=== PATIENT | female | born 1945 | race African-American/Black ===

== ENCOUNTER 2019-06-23 20:41 | Inpatient (IN) | payer MEDICARE, MEDICAID ==
[~2019-06-23] VITALS: Ht 149.9 cm; Wt 88.2 kg
--- NOTE | 2019-06-23 20:47 | NUR ---
"BIBPA FROM [facility] FOR G TUBE LEAK AND ABNORMAL LABS NA 128, K 5.4" PT VENT TRACHE DEPENDENT, AAOX0, OBTUNDED, -SOB, NAD NOTED, PT ON MONITOR, VSS.
[2019-06-23] MEDS ORDERED: ALBUTEROL FS 2.5 MG/3 ML VIAL.NEB ONE (21:07)
[2019-06-23] MEDS ORDERED: IPRATROPIUM NEB FS 0.5 MG/2.5 ML AMPUL.NEB ONE (21:07)
[2019-06-23] MEDS ORDERED: ALBUTEROL FS 2.5 MG/3 ML VIAL.NEB NEB ONE (21:30)
[2019-06-23] MEDS ORDERED: IPRATROPIUM NEB FS 0.5 MG/2.5 ML AMPUL.NEB NEB ONE (21:30)
[2019-06-23 21:56] LABS: BASOPHILS # (AUTO) 0.1 /CMM (0.0-0.2); BASOPHILS % (AUTO) 0.3 % (0.0-2.0); HEMATOCRIT 26 % (33-45); HEMOGLOBIN 8.2 g/dL (11.5-14.8); LYMPHOCYTES # (AUTO) 0.6 /CMM (0.8-4.8); MEAN CORPUSCULAR HGB CONC 32 g/dl (31.0-36.0); MEAN CORPUSCULAR VOLUME 88 fL (82-100); MONOCYTES # (AUTO) 1.1 /CMM (0.1-1.30); MONOCYTES % (AUTO) 5.7 % (2.0-12.0); NEUTROPHILS # (AUTO) 16.8 /CMM (1.8-8.9); PLATELET COUNT (AUTO) 171 /CMM (150-450); RED BLOOD CELL COUNT(AUTO) 2.93 MIL/uL (4.0-5.2); WHITE BLOOD COUNT (AUTO) 18.5 K/uL (4.3-11.0)
[2019-06-23 22:08] LABS: CALCIUM, SERUM 9.1 mg/dL (8.5-10.1); CARBON DIOXIDE 32 mmol/L (21-32); CHLORIDE 95 mmol/L (98-107); CREATININE 1.4 mg/dL (0.6-1.3); GLUCOSE 129 mg/dL (74-106); SODIUM SERUM 128 mmol/L (136-145); UREA NITROGEN, BLOOD 54 mg/dL (7-18)
[2019-06-23 22:14] LABS: ALANINE AMINOTRANSFERASE 31 U/L (12-78); ALBUMIN 2.1 g/dL (3.4-5.0); ALKALINE PHOSPHATASE 86 U/L (46-116); ASPARTATE AMINOTRANSFERASE 25 U/L (15-37); BILIRUBIN,DIRECT 0.2 mg/dL (0.0-0.2); BILIRUBIN,TOTAL 0.5 mg/dL (0.2-1.0); TOTAL PROTEIN, SERUM 6.5 g/dL (6.4-8.2)
--- NOTE | 2019-06-23 22:24 | NUR ---
urine collected and sent to lab
[2019-06-23 22:39] LABS: APPEARANCE,URINE Clear (CLEAR); BILIRUBIN,URINE Negative (NEGATIVE); BLOOD, URINE Negative Ery/uL (NEGATIVE); COLOR,URINE Yellow (YELLOW); KETONES,URINE Negative (NEGATIVE); LEUKOCYTE ESTERASE ,URINE Negative (NEGATIVE); NITRITE, URINE Negative (NEGATIVE); PH,URINE 5.5 (5.0-8.0); PROTEIN,URINE Trace mg/dl (NEGATIVE); UGLUCOSE Negative (NEGATIVE); UROBILINOGEN,URINE 0.2 EU/dL (0.2)
[2019-06-23] MEDS ORDERED: ASPIRIN 300 MG/SUPP.RECT RC ONE (23:00)
[2019-06-23 23:15] LABS: BACTERIA,URINE Rare /HPF (None Seen); RBC,URINE NONE SEEN /HPF (0-2); SQUAMOUS EPITHELIAL CELL,UR Few /HPF (None Seen); WBC,URINE NONE SEEN /HPF (0-3)
--- NOTE | 2019-06-23 23:22 | NUR ---
RECIEVED BED 308-2
[2019-06-23] MEDS ORDERED: IV D5/0.45 NACL 1,000 ML IV PRN (23:25)
[2019-06-23] MEDS ORDERED: Z GUARD REMEDY 2 OZ OINT TP PRN (23:30)
[2019-06-23] MEDS ORDERED: HYDROCODONE/APAP 5/325MG 1 EACH TABLET PO PRN (23:30)
[2019-06-23] MEDS ORDERED: ZOLPIDEM TARTRATE 5 MG TABLET PO PRN (23:30)
[2019-06-23] MEDS ORDERED: ONDANSETRON HCL/PF 4 MG/2 ML VIAL IVP PRN (23:30)
[2019-06-23] MEDS ORDERED: MAGNESIUM HYDROXIDE 30 ML UDC PO PRN (23:30)
[2019-06-23] MEDS ORDERED: MAG HYDROX/AL HYDROX/SIMETH 30 ML UDC PO PRN (23:30)
[2019-06-23] MEDS ORDERED: ENOX40DI SQ (23:44)
[2019-06-23] MEDS ORDERED: NAPH1POW3 GT (23:44)
[2019-06-23] MEDS ORDERED: DIGO125T GT (23:44)
[2019-06-23] MEDS ORDERED: FURO-144 GT (23:44)
[2019-06-23] MEDS ORDERED: LACT-209 GT (23:44)
[2019-06-23] MEDS ORDERED: ATOR20TA GT (23:44)
[2019-06-23] MEDS ORDERED: FAMO-131 GT (23:44)
[2019-06-23] MEDS ORDERED: ASPI-1169 GT (23:44)
[2019-06-23] MEDS ORDERED: DOCU100C36 GT (23:44)
[2019-06-23] MEDS ORDERED: CARV3.122 GT (23:44)
[2019-06-23] MEDS ORDERED: FERR300L GT (23:44)
[2019-06-23] MEDS ORDERED: CRAN3875 GT (23:44)
--- NOTE | 2019-06-23 23:52 | NUR ---
REPORT GIVEN TO VANIA GIORDANO FOR CODY; PT WILL BE TRANSPORTD TO 3RD FLOOR VIA ACLS PROTOCOL
[2019-06-24] MEDS ORDERED: ASPIRIN 300 MG/SUPP.RECT RC ONE (00:01)
[2019-06-24 00:15] VITALS: BP 129/80
--- NOTE | 2019-06-24 00:15 | NUR ---
PT TRANSPORTED TO 3RD FLOOR
[2019-06-24 04:00] VITALS: BP 112/60
[2019-06-24 04:17] VITALS: BP 112/60
--- NOTE | 2019-06-24 06:42 | NUR ---
RN NOTES Admitted patient from ED, pt from [facility] subacute, due to leaking PEG tube and abnormal labs, patient obtunded, ventilator dependent, spo2 100%, small amout of whitish sputum, lung sounds rhonchi, abdomen firm, distended, PEG tube stoma with excoriation, cleansed with NS and covered with split gauze, skin intact, buttocks with old healed decub, dry and intact, SR and SB with first degree block, D5 1/2 NS at 75 ml/hr, follow up medication recon.
--- NOTE | 2019-06-24 07:20 | NUR ---
INITIAL patient from ED, pt from [facility] subacute, due to leaking PEG tube and abnormal labs, patient obtunded, ventilator dependent, spo2 100%, small amount of whitish sputum, lung sounds rhonchi, abdomen firm, distended, PEG tube stoma with excoriation, covered with split gauze, skin intact, buttocks with old healed decub, dry and intact, SR 66 WITH PVC'S AND first degree block, D5 1/2 NS at 75 ml/hr. pt has two 20 gauge PIV in right arm pt has shiley #8 trach and vent settings: r-14 , vt- 552, peep- +5, fio2 40%. Bed in low positions rails up x 2 alarms on will continue to monitor.
[2019-06-24 07:30] LABS: CARBON DIOXIDE 31 mmol/L (21-32); CHLORIDE 94 mmol/L (98-107); CREATININE 1.4 mg/dL (0.6-1.3); GLUCOSE 112 mg/dL (74-106); MAGNESIUM 1.9 mg/dL (1.8-2.4); PHOSPHORUS 3.5 mg/dL (2.5-4.9); POTASSIUM 4.9 mmol/L (3.5-5.1); SODIUM SERUM 130 mmol/L (136-145); UREA NITROGEN, BLOOD 53 mg/dL (7-18)
[2019-06-24 07:31] LABS: BASOPHILS % (AUTO) 0.1 % (0.0-2.0); EOSINOPHILS % (AUTO) 0.1 % (0.0-6.0); HEMATOCRIT 28 % (33-45); HEMOGLOBIN 9.2 g/dL (11.5-14.8); LYMPHOCYTES # (AUTO) 0.9 /CMM (0.8-4.8); LYMPHOCYTES % (AUTO) 6.7 % (20.0-44.0); MEAN CORPUSCULAR HGB CONC 32 g/dl (31.0-36.0); MEAN CORPUSCULAR VOLUME 88 fL (82-100); MONOCYTES # (AUTO) 0.9 /CMM (0.1-1.30); MONOCYTES % (AUTO) 6.1 % (2.0-12.0); NEUTROPHILS # (AUTO) 12.2 /CMM (1.8-8.9); PLATELET COUNT (AUTO) 141 /CMM (150-450); RED BLOOD CELL COUNT(AUTO) 3.25 MIL/uL (4.0-5.2); WHITE BLOOD COUNT (AUTO) 14.1 K/uL (4.3-11.0)
--- NOTE | 2019-06-24 07:47 | NUR ---
RT RECEIVED PT TRACH VENT DEPENDENT WITH NOTED SETTINGS. TAILING MACHINE OPERATOR DONE AND TRACH IS SECURE. PT HAS SHILEY # 8XLT PROXIMAL TRACH. VENT ALARMS CHECKED AND AUDIBLE. VENT PLUGGED IN RED OUTLET. AMBU BAG NOTED HOB. SX WITH MOD THK BROWNLEE SECRETIONS. PT ON CONTINUOUS PULSE OX. PT TOLERATING SETTINGS WELL. CHANGED TRACH DRESSING AND INNER CANNULA. WILL CONTINUE TO MONITOR T/O SHIFT.
[2019-06-24] MEDS ORDERED: FEE PK DOSING 1 MIN EA MC ONE (07:52)
[2019-06-24] MEDS ORDERED: PIPERACILLIN /TAZOBACTAM 3.375 G in IV D5W 50 ML IV ONE (08:00)
[2019-06-24] MEDS: FAMOTIDINE (20 MG) 20 MG TABLET GT SCH (08:57)
[2019-06-24] MEDS: ASPIRIN 81 MG TAB.CHEW GT SCH (08:57)
[2019-06-24] MEDS: FERROUS SULFATE UDC 300 MG/5 ML UDC GT SCH (08:57)
[2019-06-24] MEDS ORDERED: FUROSEMIDE 40 MG TABLET GT SCH (09:00)
[2019-06-24] MEDS ORDERED: ASPIRIN 81 MG TAB.CHEW PO SCH (09:00)
[2019-06-24] MEDS ORDERED: FUROSEMIDE 20 MG TABLET GT SCH (09:00)
[2019-06-24] MEDS: VANCOMYCIN 1 GM in IV D5W 250 ML IV SCH (10:20)
[2019-06-24] MEDS: ENOXAPARIN SODIUM 30 MG/0.3 ML DISP.SYRIN SQ SCH (10:21)
[2019-06-24] MEDS: CARVEDILOL 3.125 MG TABLET GT SCH ×2 (10:23→17:00)
[2019-06-24 11:10] LABS: CHOLESTEROL 71 mg/dL (<200); HDL CHOLESTEROL 44 mg/dL (40-60); LDL 27 mg/dL (0-99); THYROID STIMULATING HORMONE 2.723 uIU/mL (0.358-3.74); TRIGLYCERIDES 46 mg/dL (30-150)
[2019-06-24] MEDS ORDERED: ALBUTEROL FS 2.5 MG/0.5 ML VIAL.NEB NEB PRN (13:00)
[2019-06-24] MEDS ORDERED: IPRATROPIUM BROMIDE 14 GM INHALER (or 12.9 GM) IH PRN ×2 (13:00)
[2019-06-24] MEDS: PIPERACILLIN /TAZOBACTAM 3.375 G in IV D5W 100 ML IV SCH ×2 (13:52→21:15)
[2019-06-24] MEDS: IPRATROPIUM NEB FS 0.5 MG/2.5 ML AMPUL.NEB NEB PRN (15:33)
[2019-06-24] MEDS: ALBUTEROL FS 2.5 MG/0.5 ML VIAL.NEB NEB PRN (15:34)
[2019-06-24 16:13] VITALS: BP 115/67
[2019-06-24 16:31] LABS: APPEARANCE,URINE CLEAR (CLEAR); BILIRUBIN,URINE NEGATIVE (NEGATIVE); BLOOD, URINE SMALL Ery/uL (NEGATIVE); COLOR,URINE YELLOW (YELLOW); KETONES,URINE NEGATIVE (NEGATIVE); LEUKOCYTE ESTERASE ,URINE SMALL (NEGATIVE); NITRITE, URINE NEGATIVE (NEGATIVE); PH,URINE 6.5 (5.0-8.0); PROTEIN,URINE 30 mg/dl (NEGATIVE); UGLUCOSE NEGATIVE (NEGATIVE); UROBILINOGEN,URINE 0.2 EU/dL (0.2)
[2019-06-24 16:37] LABS: CREATININE, URINE 65.8 MG/DL (30.0-125.0); URINE TOTAL PROTEIN 60.2 mg/dL (0-11.9)
[2019-06-24 16:41] LABS: BACTERIA,URINE 1+ /HPF (None Seen); SQUAMOUS EPITHELIAL CELL,UR Few /HPF (None Seen)
[2019-06-24 16:42] LABS: COARSE GRANULAR CASTS,URINE Few /LPF (None Seen)
[2019-06-24 17:10] LABS: EOSINOPHIL,URINE None Seen
--- NOTE | 2019-06-24 17:58 | NUR ---
Patient is trach/vent dependent resident of [facility] [phone]. She is bedbound, totally dependent with adl's. Bedhold x 7days, current dc plan is to return to SNF[facility] Addendum: 06/24/19 at 1759 by LEEANN HASSAN RN Amended: Links added.
--- NOTE | 2019-06-24 19:13 | NUR ---
PICKER BOX OPERATOR OPENING NOTES: RECEIVED PT ON VENT ON SHILEY #8 XLT WITH VENT SETTINGS AC 14, TV 550, FIO2 40%, AND PEEP 5. PT ON TELE MONITOR AND READING SHOWS SR. PT APPEARS TO BE OBTUNDED. PT HAS A G TUBE. 5ML OF RESIDUAL NOTED. PT ON JEVITY FEEDING AT 50ML/HR. PT HAS VERONICA CATH AND IS ATTACHED TO DRAINAGE BAG WITH YELLOW URINE DRAINING. PT HAS IV ON SAMMY #20G AND IS BEING INFUSED WITH ZOSYN AT 25ML/HR. PT ALSO HAS ANOTHER IV ON R FOREARM #20G. PT ON CONTINUOUS PULSE OX. PT APPEARS TO BE EDEMATOUS WELL. BED KEPT IN LOW, LOCKED POSITION, AND SIDE RAILS X 2UP. WILL CONTINUE TO MONITOR.
[2019-06-24 20:00] VITALS: BP 110/59
[2019-06-24] MEDS: DOCUSATE SODIUM LIQ 100 MG/10 ML UDC GT SCH (21:19)
[2019-06-24] MEDS: JEVITY 1.2 CAL 1,000 ML BOTTLE GT SCH (21:19)
--- NOTE | 2019-06-24 23:34 | NUR ---
RISK AND INSURANCE MANAGER NOTES: DR. CABALLERO AT BEDSIDE. NOTIFIED HER THAT PT IS EDEMATOUS. DR. CABALLERO ASSESSED PT AND SAW UPPER EXTREMITIES AND LOWER EXTREMITIES SWOLLEN. NOTIFIED HER THAT PT GOT LASIX 20MG THIS AM WELL. GOT ONE TIME ORDER FOR LASIX 20MG IV ONLY. INFORMED HER THAT CREATININE IS 1.4 WELL.
[2019-06-24 23:48] VITALS: BP 136/54
[2019-06-25] MEDS ORDERED: FUROSEMIDE 20 MG/2 ML VIAL IV ONE
[2019-06-25] MEDS: ACETAMINOPHEN 325 MG TABLET PO PRN (00:14)
[2019-06-25 00:27] VITALS: BP 145/68
[2019-06-25 04:08] VITALS: BP 130/58
[2019-06-25] MEDS: PIPERACILLIN /TAZOBACTAM 3.375 G in IV D5W 100 ML IV SCH ×3 (05:01→21:08)
--- NOTE | 2019-06-25 06:37 | NUR ---
HIGHER EDUCATION ADMINISTRATOR CLOSING NOTES: ALL NEEDS WERE ATTENDED AND ANTICIPATED FOR. PT TURNED AND REPOSITIONED Q 2HRS. PT REMAINS ON TRACH SHILEY #8 XLT WITH VENT SETTINGS AC 14, TV 550, FI02 40%, AND PEEP 5. PT ON TELE MONITOR AND READING SHOWS SR 80 WITH FIRST DEGREE BLOCK BORDERLINE. PT HAS VERONICA CATH AND IS ATTACHED TO DRAINAGE BAG WITH YELLOW URINE DRAINING. OUTPUT WAS 650ML. PT HAS G TUBE WITH 5 ML RESIDUAL. PT HAS JEVITY FEEDING AT 50ML/HR. PT TOLERATING WELL. PT HAS IV ON SAMMY #20G AND IS BEING INFUSED WITH ZOSYN AT 25ML/HR. PT ALSO HAS R FOREARM #20G AND IS INTACT. PT REMAINS OBTUNDED. HEELS OFFLOADED. BED KEPT IN LOW, LOCKED POSITION, AND SIDE RAILS X 2UP WITH HOB ELEVATED. WILL ENDORSE TO AM NURSE FOR CODY.
[2019-06-25 07:01] LABS: BASOPHILS % (AUTO) 0.2 % (0.0-2.0); EOSINOPHILS % (AUTO) 0.3 % (0.0-6.0); HEMATOCRIT 29 % (33-45); HEMOGLOBIN 9.4 g/dL (11.5-14.8); LYMPHOCYTES # (AUTO) 0.9 /CMM (0.8-4.8); LYMPHOCYTES % (AUTO) 6.9 % (20.0-44.0); MEAN CORPUSCULAR HGB CONC 32 g/dl (31.0-36.0); MEAN CORPUSCULAR VOLUME 88 fL (82-100); MONOCYTES # (AUTO) 1.4 /CMM (0.1-1.30); MONOCYTES % (AUTO) 11.3 % (2.0-12.0); NEUTROPHILS # (AUTO) 10.1 /CMM (1.8-8.9); NEUTROPHILS % (AUTO) 81.3 % (43.0-81.0); PLATELET COUNT (AUTO) 135 /CMM (150-450); WHITE BLOOD COUNT (AUTO) 12.4 K/uL (4.3-11.0)
--- NOTE | 2019-06-25 07:15 | NUR ---
RN OPENING NOTES RECEIVED PATIENT ON MECH VENT. PATIENT ON TELEMONIOTR SR 73. PATIENT OBTUNDED, OPEN EYES. NOT IN ANY FORM OF DISTRESS. NO S/S OF PAIN OR DISCOMFORT. IV ACCESS INTACT AND PATENT. NOTED WITH GTUBE, ON JEVITY FEEDING AT 50ML/HR. VERONICA CATH IN PLACE WITH YELLOW URINE DRAINING. ON CONTINUOUS PULSE OX. PATIENT APPEARS TO BE EDEMATOUS WELL. SAFETY MEASURES IN PLACE. BED IN LOW/LOCKED POSITION, SIDERAIL UP. CALL LIGHT IN REACH. WILL CONTINUE TO MONITOR.
[2019-06-25 07:18] LABS: CALCIUM, SERUM 8.8 mg/dL (8.5-10.1); CARBON DIOXIDE 30 mmol/L (21-32); CHLORIDE 94 mmol/L (98-107); CREATININE 1.5 mg/dL (0.6-1.3); GLUCOSE 123 mg/dL (74-106); MAGNESIUM 1.8 mg/dL (1.8-2.4); PHOSPHORUS 3.3 mg/dL (2.5-4.9); POTASSIUM 4.7 mmol/L (3.5-5.1); SODIUM SERUM 130 mmol/L (136-145); UREA NITROGEN, BLOOD 49 mg/dL (7-18)
[2019-06-25 08:00] VITALS: BP 113/94
[2019-06-25] MEDS: ASPIRIN 81 MG TAB.CHEW GT SCH (10:03)
[2019-06-25] MEDS: CARVEDILOL 3.125 MG TABLET GT SCH ×2 (10:03→16:28)
[2019-06-25] MEDS: FERROUS SULFATE UDC 300 MG/5 ML UDC GT SCH (10:04)
[2019-06-25] MEDS: FAMOTIDINE (20 MG) 20 MG TABLET GT SCH (10:05)
[2019-06-25] MEDS: ENOXAPARIN SODIUM 30 MG/0.3 ML DISP.SYRIN SQ SCH (10:10)
[2019-06-25] MEDS: VANCOMYCIN 1 GM in IV D5W 250 ML IV SCH (10:10)
[2019-06-25 12:00] VITALS: BP 100/70
[2019-06-25 16:00] VITALS: BP 96/50
--- NOTE | 2019-06-25 19:10 | NUR ---
RN CLOSING NOTES PATIENT IN STABLE CONDITION. ALL NEEDS ATTENDED AND PROVIDED. ALL DUE MEDS GIVEN ORDERED. TURNED AND REPOSITIONED PATIENT EVERY 2HRS NEEDED. SKIN CARE RENDERED. TRACH CARE DONE, SUCTIONED TRACH NEEDED. KEPT PATIENT SAFE AND COMFORTABLE. BED IN LOW/LOCKED POSITION. SIDERAILS UP, CALL LIGHT IN REACH. ENDORSED TO VANIA CELESTE FOR CODY.
--- NOTE | 2019-06-25 19:20 | NUR ---
MS/RN OPENING NOTES RECEIVED PATIENT IN BED, ON MECHANICAL VENT WITH PRESCRIBED SETTING, RT AT BEDSIDE FOR TREATMENT, OPENS EYES, ON TELE AT SR 80'S, WITH VERONICA DRAINING URINE, ON GTUBE FEEDING TO START AT 2100M REQUIRE TURNING AND REPOSITION, ON JEVITY 1.2 ON IV ANTIBIOTIC THERAPY. WILL MONITOR. BED LOCKED, WILL MONITOR. RECEIVED REPORT FROM AM RN FOR CODY.
[2019-06-25 20:00] VITALS: BP 95/55
[2019-06-25] MEDS: DOCUSATE SODIUM LIQ 100 MG/10 ML UDC GT SCH (21:07)
--- NOTE | 2019-06-25 22:33 | NUR ---
tele/rn notes gtube feeding star, unable to scan , for record. able to flush, patietn tolerated wll.
[2019-06-26] VITALS (8 sets, daily range): BP systolic 98–148; BP diastolic 37–80
[2019-06-26] MEDS: PIPERACILLIN /TAZOBACTAM 3.375 G in IV D5W 100 ML IV SCH ×3 (05:20→22:01)
--- NOTE | 2019-06-26 05:54 | NUR ---
PATIENT RECEIVED ON TRACH TO VENT WITH SETTINGS OF AC 14, 550 VT, 40%, +5. SUCTIONED WITH LAVAGE FOR MINIMAL, THICK, RED-WHITE SECRETIONS. PATIENT REMAINED STABLE WITH NO DISTRESS/SOB NOTED. AMBU BAG AT BEDSIDE. VENT AND PULSE OXIMETER ALARMS AUDIBLE AND VISIBLE. VENT PLUGGED INTO RED OUTLET. Addendum: 06/26/19 at 0555 by SUZETTE DAVIS RT Amended: Links added.
--- NOTE | 2019-06-26 06:31 | NUR ---
MS/RN NOTES PATIENT AGREED TO HAVE VITAL SIGNS TAKEN FOR LYING DOWN AND SITTING DOWN ONLY. RECEIVED A CALL FROM SON AND PATIENT ABLE TO TALK TO SON. PATIENT REPORTED THAT SHE WAS NOT ABLE TO REMEMBER WHAT HAD HAPPEN AND WHY SHE WAS BROUGHT TO HOSPITAL BUT ABLE TO STATE HER NAME AND REMEMBER BIRTHDATE UNABLE TO TELL Jad AYALA, PATIENT WOULD LIKE TO PARTICIPITATE WITH HIS CARE AND WANT TO FEEL BETTER. Addendum: 06/27/19 at 0335 by ROULA CAROLINA RN pls disregard for different patient.
--- NOTE | 2019-06-26 06:58 | NUR ---
MS/RN NOTES PATIENT ABLE TO SLEEP AND REST, AGREED TO COOPERATE WITH CARE, BLOOD PRESSURE READING CHECKED , SON CALLED AND SPOKE WITH PATIENT. PATIENT WORRIED ABOUT HER HEALTH, DISCUSSED CARE AND LISTENED TO PATIENT, KEPT COMFORTABLE, REFUSE TO TAKE SOME SNACKS. BED LOCKED, CALL LIGHTS WITHIN REACH, WILL MONITOR. Addendum: 06/26/19 at 0706 by ROULA CAROLINA RN PLS DISREGARD FOR A DIFFERENT PATIENT.
--- NOTE | 2019-06-26 07:07 | NUR ---
MS/RN NOTES PATIENT RESTING IN BED, ON MECHANICAL VENT, RESPIRATIONS EVEN AND UNLABORED, VERONICA CATHETER DRAINIGN URINE.
[2019-06-26 08:31] LABS: BASOPHILS % (AUTO) 0.2 % (0.0-2.0); EOSINOPHILS % (AUTO) 0.4 % (0.0-6.0); HEMATOCRIT 27 % (33-45); HEMOGLOBIN 8.6 g/dL (11.5-14.8); LYMPHOCYTES # (AUTO) 1.2 /CMM (0.8-4.8); LYMPHOCYTES % (AUTO) 10.2 % (20.0-44.0); MEAN CORPUSCULAR HGB CONC 31 g/dl (31.0-36.0); MEAN CORPUSCULAR VOLUME 88 fL (82-100); MONOCYTES # (AUTO) 1.2 /CMM (0.1-1.30); MONOCYTES % (AUTO) 10.2 % (2.0-12.0); NEUTROPHILS # (AUTO) 9.6 /CMM (1.8-8.9); PLATELET COUNT (AUTO) 135 /CMM (150-450); RED BLOOD CELL COUNT(AUTO) 3.13 MIL/uL (4.0-5.2); WHITE BLOOD COUNT (AUTO) 12.1 K/uL (4.3-11.0)
[2019-06-26] MEDS: ASPIRIN 81 MG TAB.CHEW GT SCH (08:42)
[2019-06-26] MEDS: FAMOTIDINE (20 MG) 20 MG TABLET GT SCH (08:42)
[2019-06-26] MEDS: CARVEDILOL 3.125 MG TABLET GT SCH ×2 (08:42→17:33)
[2019-06-26] MEDS: FERROUS SULFATE UDC 300 MG/5 ML UDC GT SCH (08:43)
[2019-06-26] MEDS: ENOXAPARIN SODIUM 30 MG/0.3 ML DISP.SYRIN SQ SCH (08:43)
[2019-06-26] MEDS: VANCOMYCIN 1 GM in IV D5W 250 ML IV SCH (08:51)
[2019-06-26 08:53] LABS: CALCIUM, SERUM 8.3 mg/dL (8.5-10.1); CARBON DIOXIDE 26 mmol/L (21-32); CHLORIDE 94 mmol/L (98-107); CREATININE 1.6 mg/dL (0.6-1.3); GLUCOSE 134 mg/dL (74-106); MAGNESIUM 1.8 mg/dL (1.8-2.4); POTASSIUM 4.4 mmol/L (3.5-5.1); SODIUM SERUM 129 mmol/L (136-145); UREA NITROGEN, BLOOD 48 mg/dL (7-18)
--- NOTE | 2019-06-26 15:00 | NUR ---
rn notes followed up KC1 mattress,called central supply and left voicemail.
[2019-06-26] MEDS: LACTOBACILLUS RHAMNOSUS GG 1 EACH CAP.SPRINK PO SCH (17:32)
--- NOTE | 2019-06-26 19:03 | NUR ---
RN CLOSING NOTES PATIENT IN STABLE CONDITION. ALL NEEDS ATTENDED AND PROVIDED. ALL DUE MEDS GIVEN ORDERED. TURNED AND REPOSITIONED PATIENT EVERY 2HRS NEEDED. SKIN CARE RENDERED. TRACH CARE DONE, SUCTIONED TRACH NEEDED. KEPT PATIENT SAFE AND COMFORTABLE. BED IN LOW/LOCKED POSITION. SIDERAILS UP, CALL LIGHT IN REACH. WILL ENDORSED TO NIGHT RN FOR CODY. Addendum: 06/26/19 at 1925 by JACK CAMPOS endorsed to zeferino gonzalez
[2019-06-26] MEDS: MEROPENEM 1 G in IV NS 0.9% 100 ML IV SCH (21:01)
[2019-06-26] MEDS: JEVITY 1.2 CAL 1,000 ML BOTTLE GT SCH (21:01)
[2019-06-26] MEDS: DOCUSATE SODIUM LIQ 100 MG/10 ML UDC GT SCH (21:18)
[2019-06-27] VITALS (7 sets, daily range): BP systolic 83–133; BP diastolic 48–72
[2019-06-27] MEDS: PIPERACILLIN /TAZOBACTAM 3.375 G in IV D5W 100 ML IV SCH (05:54)
--- NOTE | 2019-06-27 06:15 | NUR ---
ARCHITECT MARINE NOTES AWAKE & NON VERBAL WITH SAME VENT SETTINGS. NOT IN ANY DISTRESS. NO SOB NOTED. NO S/SX OF ANY PAIN OR DISCOMFORT AT THIS TIME. ON TELE SR @ 64 WITH OCC PVCS WITH IVF & GTF INFUSING WELL. MONITORED ACCORDINGLY. AM CARE DONE. CALL LIGHT WITHIN REACH. BED IN LOWEST POSITION. SR UP X 3 WITH BED ALARM ON FOR SAFETY. WILL ENDORSE TO NEXT SHIFT.
[2019-06-27 06:35] LABS: BASOPHILS % (AUTO) 0.2 % (0.0-2.0); EOSINOPHILS % (AUTO) 0.8 % (0.0-6.0); HEMATOCRIT 32 % (33-45); HEMOGLOBIN 9.8 g/dL (11.5-14.8); LYMPHOCYTES # (AUTO) 1.8 /CMM (0.8-4.8); LYMPHOCYTES % (AUTO) 11.5 % (20.0-44.0); MEAN CORPUSCULAR HGB CONC 31 g/dl (31.0-36.0); MEAN CORPUSCULAR VOLUME 89 fL (82-100); MONOCYTES # (AUTO) 1.7 /CMM (0.1-1.30); MONOCYTES % (AUTO) 10.8 % (2.0-12.0); NEUTROPHILS % (AUTO) 76.7 % (43.0-81.0); PLATELET COUNT (AUTO) 149 /CMM (150-450); RED BLOOD CELL COUNT(AUTO) 3.55 MIL/uL (4.0-5.2); WHITE BLOOD COUNT (AUTO) 15.6 K/uL (4.3-11.0)
[2019-06-27 07:16] LABS: CALCIUM, SERUM 9.1 mg/dL (8.5-10.1); CARBON DIOXIDE 26 mmol/L (21-32); CHLORIDE 93 mmol/L (98-107); CREATININE 1.7 mg/dL (0.6-1.3); GLUCOSE 130 mg/dL (74-106); MAGNESIUM 2.1 mg/dL (1.8-2.4); PHOSPHORUS 3.4 mg/dL (2.5-4.9); POTASSIUM 4.2 mmol/L (3.5-5.1); SODIUM SERUM 129 mmol/L (136-145); UREA NITROGEN, BLOOD 51 mg/dL (7-18)
--- NOTE | 2019-06-27 07:31 | NUR ---
Tele/RN Opening Note Patient is resting in bed, obtunded, on mechanical ventilation AC 14, TV 550, FiO2 40%, PEEP 5. Currently saturating at 100%. Tele monitor SR with occasional PVCs at 89. IV S/L on SAMMY 20g is clean and running at 25mL/hr. Bed is in lowest position, side rails x3 in high rivera's position. Will continue to closely monitor patient, turning and repositioning every 2 hrs, attending to all needs.
[2019-06-27] MEDS: MEROPENEM 1 G in IV NS 0.9% 100 ML IV SCH ×3 (08:59→17:07)
[2019-06-27] MEDS: FAMOTIDINE (20 MG) 20 MG TABLET GT SCH (08:59)
[2019-06-27] MEDS: ENOXAPARIN SODIUM 30 MG/0.3 ML DISP.SYRIN SQ SCH (08:59)
[2019-06-27] MEDS: ASPIRIN 81 MG TAB.CHEW GT SCH (08:59)
[2019-06-27] MEDS: LACTOBACILLUS RHAMNOSUS GG 1 EACH CAP.SPRINK PO SCH ×2 (08:59→16:46)
[2019-06-27] MEDS ORDERED: VANCOMYCIN 0.75 GM in IV D5W 250 ML IV SCH (09:00)
[2019-06-27] MEDS: FERROUS SULFATE UDC 300 MG/5 ML UDC GT SCH (09:00)
[2019-06-27] MEDS: CARVEDILOL 3.125 MG TABLET GT SCH ×2 (09:00→16:46)
--- NOTE | 2019-06-27 09:35 | NUR ---
WOUND CARE CONSULT: PT PRESENTS IMMOBILE AND INCONTINENT OF STOOL, VENT-DEPENDENT WITH SACRAL SCARRING EXTENDING TO BILATERAL BUTTOCKS AND CALLUSES TO RT HEEL, PRESENT ON ADMISSION. FLOAT HEELS AT ALL TIMES. RECOMMENDATIONS MADE FOR SKIN PROTECTION. DISCUSSED WITH NURSING STAFF. CURRENT CAREY SCORE IS 10. PT HAS ANASARCA. FIRST STEP LOW AIRLOSS MATTRESS ON ORDER. WILL SEE PRN. KNIGHT IN AGREEMENT WITH PLAN OF CARE. Addendum: 06/27/19 at 0941 by LUCIAN MAURER WNDNU Amended: Links added.
--- NOTE | 2019-06-27 12:16 | NUR ---
RN notes Procalcitonin Procalcitonin 2.82. CASINO ATTENDANT made aware.
[2019-06-27] MEDS: IPRATROPIUM NEB FS 0.5 MG/2.5 ML AMPUL.NEB NEB PRN (13:20)
[2019-06-27] MEDS: ALBUTEROL FS 2.5 MG/0.5 ML VIAL.NEB NEB PRN (13:20)
[2019-06-27] MEDS ORDERED: LORAZEPAM INJ 2 MG/ML VIAL IV ONE (14:00)
--- NOTE | 2019-06-27 14:59 | NUR ---
Rn notes non-admin Ativan 1mg IV not administered at 1400, will admin at 1500.
[2019-06-27] MEDS ORDERED: LORAZEPAM INJ 2 MG/ML VIAL IVP ONE (15:00)
[2019-06-27] MEDS: ACETAMINOPHEN 325 MG TABLET PO PRN (15:32)
[2019-06-27] MEDS: PROSOURCE / PROSTAT (PYXIS) 30 ML UDC GT SCH ×2 (16:12→16:47)
--- NOTE | 2019-06-27 16:15 | NUR ---
RN NOTES PATIENT NOTED WITH ELEVATED TEMP OF 100.8F. COOLING MEASURES IMPLEMENTED, PRN TYLENOL 650MG GIVEN BY GTUBE AT 1532. RECHECKED TEMPERATURE AFTER 30 MINUTES AND TEMP WENT DOWN TO 99.8F. WILL CONTINUE TO MONITOR.
[2019-06-27] MEDS: JEVITY 1.2 CAL 1,000 ML BOTTLE GT SCH (16:48)
--- NOTE | 2019-06-27 18:59 | NUR ---
BELLY PACKER CLOSING NOTES PATIENT IN BED LYING COMFORTABLY IN BED. OBTUNDED, OPEN EYES AND RESPONSIVE TO DEEP TACTILE STIMULI. ON MECH VENT AT PRESCRIBED PARAMETERS, TOLERATING SETTINGS WELL WITH NO SOB NOTED. ON TELEMONITORING WITH CURRENT READING OF SR WITH HR ON THE 70'S. IV ACCESS ON SAMMY INTACT AND PATENT. G-TUBE IN PLACE AND PATENT, ON JEVITY FEEDING AT 50ML/HR, TOLERATING WELL. ASPIRATION PRECAUTIONS MAINTAINED. VERONICA CATH IN PLACE WITH YELLOW URINE DRAINING, VERONICA CARE DONE. ON CONTINUOUS PULSE OX. PATIENT NOTED EDEMATOUS WELL. PT TURNED AND REPOSITIONED FROM SIDE TO SIDE Q 2HRS AND PRN. ALL NEEDS AND CARE PROVIDED WELL. SAFETY MEASURES KEPT IN PLACE. BED IN LOW/LOCKED POSITION, SIDE-RAILS UP X3. CALL LIGHT IN REACH. WILL ENDORSE TO DECONTAMINATOR NURSE FOR CODY.
--- NOTE | 2019-06-27 19:15 | NUR ---
CHANGED OF SHIFT REPORT Patient in bed, Obtunded, able to opens eye. Trach intact, on mechanical vent. Sinus rhythm in the Tele monitor. Abdomen presence of Gtube, Gleason cath intact. episode of elevated temp Am shift per report. Skin/aspiration/fall precaution.
--- NOTE | 2019-06-27 20:15 | NUR ---
RT NOTE [facility] mode. No resp distress or sob noted. Trach is patent and secured. Sx'd for thick mod amt of blood tinged secretions. Alarms are set and audible. Vent plugged into red outlet. Ambu bag and emergency spare trach bedside. Will continue to monitor. Addendum: 06/27/19 at 2017 by SHAYNA CHEUNG RT Amended: Links added.
[2019-06-27] MEDS: DOCUSATE SODIUM LIQ 100 MG/10 ML UDC GT SCH (21:24)
--- NOTE | 2019-06-27 23:42 | NUR ---
SPUTUM WITH BLOOD During trach suctioning, noted trach sputum secretion with blood. Hgb 9.8 Hct 32 Spoke with Mary Martin ordered to hold Lovenox injection in am 06/28/19, ok to give aspirin per MD. Will endorse to oncoming RN.
[2019-06-28] VITALS: BP 92/57
[2019-06-28 04:00] VITALS: BP 95/63
[2019-06-28] MEDS: MEROPENEM 1 G in IV NS 0.9% 100 ML IV SCH ×2 (05:14→17:21)
--- NOTE | 2019-06-28 06:20 | NUR ---
END OF SHIFT REPORT Patient in bed, opens eye, obtunded. Sinus rhythm with PVC in the Tele monitor. Tolerating tube feeding, minimal gastric residual. Gleason cath to gravity. IV antibiotic as scheduled, Afebrile overnight. Turned and repositioned every 2 hours, offload heels at all times. XR Chest today. Fall/Aspiration/ Skin precaution.
--- NOTE | 2019-06-28 07:30 | NUR ---
RT Pt received trached on mechanical ventilation with noted settings. Pt is awake and responds to stimuli when suctioned. Small thin lood tinged secretions noticed when suctioned. No SOB or respiratory distress noted. Addendum: 06/28/19 at 0734 by RADHA ROJO RT Amended: Links added.
[2019-06-28 07:46] LABS: CALCIUM, SERUM 8.7 mg/dL (8.5-10.1); CARBON DIOXIDE 28 mmol/L (21-32); CHLORIDE 94 mmol/L (98-107); CREATININE 1.9 mg/dL (0.6-1.3); GLUCOSE 129 mg/dL (74-106); PHOSPHORUS 3.5 mg/dL (2.5-4.9); POTASSIUM 3.8 mmol/L (3.5-5.1); SODIUM SERUM 131 mmol/L (136-145); UREA NITROGEN, BLOOD 56 mg/dL (7-18)
--- NOTE | 2019-06-28 07:46 | NUR ---
RADIOTELEPHONE OPERATOR OPENING NOTES Received Patient asleep and resting in bed. Patient obtunded and in stable condition. Breathing even and unlabored on vent. No signs and syj Addendum: 06/28/19 at 0754 by SUNNY LEMONS RN symptoms of pain. Telemonitor in place and patent reading SR with PVC HR-83. GTube in place and patent with Jevity 1.2 infusing at 50ml/hr. Gleason Cath in place and patent with clear yellow output noted. 20g PIV on SAMMY clean, intact, patent and flushing well. Safety precautions in place. Bed locked and set to lowest position with side rails x 3 up. All needs rendered at this time. Call light within reach. Will continue to monitor.
[2019-06-28 07:56] LABS: EOSINOPHILS % (AUTO) 0.1 % (0.0-6.0); HEMATOCRIT 25 % (33-45); HEMOGLOBIN 7.8 g/dL (11.5-14.8); LYMPHOCYTES % (AUTO) 5.3 % (20.0-44.0); MEAN CORPUSCULAR HGB CONC 32 g/dl (31.0-36.0); MEAN CORPUSCULAR VOLUME 86 fL (82-100); MONOCYTES # (AUTO) 1.2 /CMM (0.1-1.30); MONOCYTES % (AUTO) 6.1 % (2.0-12.0); NEUTROPHILS # (AUTO) 17.1 /CMM (1.8-8.9); NEUTROPHILS % (AUTO) 88.5 % (43.0-81.0); PLATELET COUNT (AUTO) 118 /CMM (150-450); RED BLOOD CELL COUNT(AUTO) 2.83 MIL/uL (4.0-5.2); WHITE BLOOD COUNT (AUTO) 19.4 K/uL (4.3-11.0)
[2019-06-28 08:00] VITALS: BP 112/67
[2019-06-28] MEDS: ASPIRIN 81 MG TAB.CHEW GT SCH (08:56)
[2019-06-28] MEDS: CARVEDILOL 3.125 MG TABLET GT SCH ×2 (08:57→17:20)
[2019-06-28] MEDS: PROSOURCE / PROSTAT (PYXIS) 30 ML UDC GT SCH ×2 (08:58→17:20)
[2019-06-28] MEDS: LACTOBACILLUS RHAMNOSUS GG 1 EACH CAP.SPRINK PO SCH ×2 (08:58→17:20)
[2019-06-28] MEDS: FAMOTIDINE (20 MG) 20 MG TABLET GT SCH (08:58)
[2019-06-28] MEDS: FERROUS SULFATE UDC 300 MG/5 ML UDC GT SCH (08:58)
[2019-06-28] MEDS: ENOXAPARIN SODIUM 30 MG/0.3 ML DISP.SYRIN SQ SCH (09:00)
[2019-06-28 12:00] VITALS: BP 95/50
[2019-06-28 15:57] LABS: APPEARANCE,URINE SL CLOUDY (CLEAR); BILIRUBIN,URINE NEGATIVE (NEGATIVE); BLOOD, URINE SMALL Ery/uL (NEGATIVE); COLOR,URINE YELLOW (YELLOW); KETONES,URINE TRACE (NEGATIVE); LEUKOCYTE ESTERASE ,URINE TRACE (NEGATIVE); NITRITE, URINE NEGATIVE (NEGATIVE); PROTEIN,URINE 30 mg/dl (NEGATIVE); UGLUCOSE NEGATIVE (NEGATIVE); UROBILINOGEN,URINE 0.2 EU/dL (0.2)
[2019-06-28 16:00] VITALS: BP 134/54
[2019-06-28 16:07] LABS: BACTERIA,URINE 1+ /HPF (None Seen); SQUAMOUS EPITHELIAL CELL,UR Few /HPF (None Seen); WBC,URINE 0-2 /HPF (0-3)
[2019-06-28 17:25] LABS: EOSINOPHIL,URINE None Seen
--- NOTE | 2019-06-28 19:15 | NUR ---
CHANGED OF SHIFT REPORT Patient in bed, eyes open, obtunded. Trach intact, on mechanical vent. Sinus Fran in the Tele monitor. Abdomen presence of Gtube, Gleason cath intact, urine output lesser amount per Am shift per report. Skin/aspiration/fall precaution maintained.
--- NOTE | 2019-06-28 19:22 | NUR ---
METAL EXPEDITER CLOSING NOTES Patient resting in bed. Patient obtunded and in stable condition. VS stable with no acute distress. Breathing even and unlabored on trachea and vent with no respiratory distress. No signs and symptoms of pain. Telemonitor in place and patent reading SB/SR with 1st Degree Block HR-58. GTube in place and patent with Jevity 1.2 infusing at 50ml/hr. Gleason Cath in place and flushed with clear savage coloured output noted. 20g PIV on SAMMY clean, intact, patent and flushing well with IV ABX infusing. Safety precautions in place. Bed locked and set to lowest position with side rails x 3 up. All needs rendered at this time. Call light within reach. Will endorse plan of care to oncoming shift.
[2019-06-28 20:16] VITALS: BP 104/56
--- NOTE | 2019-06-28 20:21 | NUR ---
PT RECEIVED TRACHED JORGE 8 ON MECHANICAL VENTILATION WITH NOTED SETTINGS. SX DONE. PT RESPONDS TO STIMULI WHEN SUCTIONED. AMBU BAG @ BEDSIDE. TRACH SECURED AND PATENT. ALARMS ON AND AUDIBLE. VENT PLUGGED INTO RED OUTLET. NO SOB OR RESPIRATORY DISTRESS NOTED AT THIS TIME. WILL MONITOR T/O SHIFT.
[2019-06-28] MEDS: DOCUSATE SODIUM LIQ 100 MG/10 ML UDC GT SCH (21:09)
--- NOTE | 2019-06-28 23:28 | NUR ---
NEW BURNETT CATHETER Zero urine output since 1899, visible urine from the burnett cath tubing. Drainage tubing was flushed this morning per report. Bladder scan showed 222 ml vol urine. Removed old burnett cath and with sterile technique reinsert new urinary burnett catheter without resistance.
[2019-06-29 00:03] VITALS: BP 135/50
[2019-06-29 04:35] VITALS: BP 97/52
[2019-06-29] MEDS: MEROPENEM 1 G in IV NS 0.9% 100 ML IV SCH ×2 (05:38→17:36)
[2019-06-29] MEDS: JEVITY 1.2 CAL 1,000 ML BOTTLE GT SCH (05:46)
--- NOTE | 2019-06-29 06:22 | NUR ---
END OF SHIFT REPORT Patient in bed, obtunded, eyes open. Sinus Rhythm with PVC in the Tele monitor. Trach intact, vent setting s remains the same. Suction secretion PRN. Tolerating tube feeding, minimal gastric residual. Gleason cath to gravity, urine output decreased and documented, bladder scan showed 248ml vol. IV antibiotic as scheduled, Afebrile overnight. Turned and repositioned every 2 hours, offload heels at all times. XR Chest today. Fall /Aspiration/ Skin precaution maintained.
--- NOTE | 2019-06-29 07:32 | NUR ---
MANAGER BUSINESS PROCESS OPENING NOTE PATIENT IN BED RESTING COMFORTABLY. PATIENT ON VENT, TOLERATING VENT SETTINGS WELL. SHILEY 8, AC 14, FIO2 40, TV 550, PEEP 5. PATIENT IN NO ACUTE DISTRESS. NO SOB NOTED. PATIENT BREATHING IS EVEN AND UNLABORED. PATIENT ON TELE MONITORING READING SINUS RHYTHM 62 WITH OCCASIONAL PVC, 1ST DEGREE. PATIENT BED ALARM IS ON. HOB IS ELEVATED. PATIENT SAFETY PRECAUTIONS IN PLACE. PATIENT BED IS LOCKED AND IN LOWEST POSITION. CALL LIGHT WITHIN REACH. WILL CONTINUE TO MONITOR.
[2019-06-29 08:00] VITALS: BP 128/64
[2019-06-29] MEDS: PROSOURCE / PROSTAT (PYXIS) 30 ML UDC GT SCH ×2 (08:51→16:16)
[2019-06-29] MEDS: FERROUS SULFATE UDC 300 MG/5 ML UDC GT SCH (08:52)
[2019-06-29] MEDS: ASPIRIN 81 MG TAB.CHEW GT SCH (08:52)
[2019-06-29] MEDS: LACTOBACILLUS RHAMNOSUS GG 1 EACH CAP.SPRINK PO SCH ×2 (08:52→16:18)
[2019-06-29] MEDS: FAMOTIDINE (20 MG) 20 MG TABLET GT SCH (08:53)
[2019-06-29] MEDS: CARVEDILOL 3.125 MG TABLET GT SCH ×2 (08:53→16:15)
[2019-06-29 09:27] LABS: BASOPHILS % (AUTO) 0.2 % (0.0-2.0); EOSINOPHILS % (AUTO) 1.1 % (0.0-6.0); HEMATOCRIT 31 % (33-45); HEMOGLOBIN 9.7 g/dL (11.5-14.8); LYMPHOCYTES # (AUTO) 1.7 /CMM (0.8-4.8); LYMPHOCYTES % (AUTO) 8.5 % (20.0-44.0); MEAN CORPUSCULAR HGB CONC 31 g/dl (31.0-36.0); MEAN CORPUSCULAR VOLUME 88 fL (82-100); MONOCYTES # (AUTO) 1.8 /CMM (0.1-1.30); NEUTROPHILS # (AUTO) 16.2 /CMM (1.8-8.9); NEUTROPHILS % (AUTO) 81.2 % (43.0-81.0); PLATELET COUNT (AUTO) 153 /CMM (150-450); RED BLOOD CELL COUNT(AUTO) 3.52 MIL/uL (4.0-5.2); WHITE BLOOD COUNT (AUTO) 19.9 K/uL (4.3-11.0)
[2019-06-29 09:38] LABS: ALANINE AMINOTRANSFERASE 34 U/L (12-78); ALBUMIN 1.9 g/dL (3.4-5.0); ALKALINE PHOSPHATASE 86 U/L (46-116); ASPARTATE AMINOTRANSFERASE 35 U/L (15-37); BILIRUBIN,TOTAL 0.5 mg/dL (0.2-1.0); CALCIUM, SERUM 8.9 mg/dL (8.5-10.1); CARBON DIOXIDE 27 mmol/L (21-32); CHLORIDE 93 mmol/L (98-107); CREATININE 2.2 mg/dL (0.6-1.3); GLUCOSE 126 mg/dL (74-106); MAGNESIUM 2.1 mg/dL (1.8-2.4); PHOSPHORUS 4.4 mg/dL (2.5-4.9); POTASSIUM 4.2 mmol/L (3.5-5.1); SODIUM SERUM 128 mmol/L (136-145); TOTAL PROTEIN, SERUM 6.7 g/dL (6.4-8.2); UREA NITROGEN, BLOOD 65 mg/dL (7-18)
[2019-06-29] MEDS: ENOXAPARIN SODIUM 30 MG/0.3 ML DISP.SYRIN SQ SCH (09:38)
--- NOTE | 2019-06-29 13:24 | NUR ---
RT RECEIVED PT TRACH'D ON [facility] VENT WITH SETTINGS PER MD ORDER. APARTMENT LOCATOR DONE. VENT PLUGGED INTO RED OUTLET. SPARE TRACH AND AMBU BAG AT HEAD OF BED. SUCTIONED AND MONITORED PRN. ALARMS ON AND AUDIBLE. NO SOB OR SIGNS OF DISTRESS NOTED AT THIS TIME. Addendum: 06/29/19 at 1807 by DESIRAE ALMONTE RT Amended: Links added.
[2019-06-29 16:00] VITALS: BP 103/52
--- NOTE | 2019-06-29 18:00 | NUR ---
WREATH MAKER NOTES VERONICA CATHETER HANGING TO GRAVITY DRAINING 400ML OF CLEAR YELLOW FLUID.
--- NOTE | 2019-06-29 18:35 | NUR ---
BEHAVIORAL INTERVENTIONIST CLOSING NOTE PATIENT IN BED RESTING COMFORTABLY. PATIENT ON VENT, TOLERATING VENT SETTINGS WELL. SHILEY 8, AC 14, FIO2 40, TV 550, PEEP 5. PATIENT IN NO ACUTE DISTRESS. NO SOB NOTED. PATIENT BREATHING IS EVEN AND UNLABORED. PATIENT ON TELE MONITORING READING SINUS BRADYCARDIA HR 58 WITH OCCASIONAL PVC, 1ST DEGREE. PATIENT BED ALARM IS ON. HOB IS ELEVATED. PATIENT SAFETY PRECAUTIONS IN PLACE. PATIENT KEPT CLEAN, DRY, AND COMFORTABLE. PATIENT REPOSITIONED Q2H. PATIENT EXTREMITIES OFFLOADED ON PILLOWS. MEPILEX AND ZGUARD APPLIED NEEDED. PATIENT BED IS LOCKED AND IN LOWEST POSITION. CALL LIGHT WITHIN REACH. WILL ENDORSE CARE TO PM SHIFT FOR CODY.
--- NOTE | 2019-06-29 19:15 | NUR ---
CHANGED OF SHIFT REPORT Patient in bed, eyes open, obtunded. Trach intact, on mechanical vent. Sinus Fran with occasional PVC's First degree in the Tele monitor. Abdomen presence of Gtube, Gleason cath intact to gravity. SAMMY IV peripheral line intermediate out in placed, on IV antibiotic as scheduled. Skin/aspiration/fall precaution maintained
[2019-06-29 20:00] VITALS: BP 126/86
[2019-06-29 20:10] VITALS: BP 126/86
--- NOTE | 2019-06-29 20:57 | NUR ---
MIDLINE INSERTION Patient is hard stick, Right upper arm IV peripheral line half way out. On IV antibiotic as scheduled, re inserted new IV peripheral line but unsuccessful x2 attempt. Notified MD, MIDLINE to be inserted as ordered.
--- NOTE | 2019-06-29 21:32 | NUR ---
MIDLINE Midline inserted by Gilles/PICC. Midline intact, dressing clean and dry.
[2019-06-29] MEDS: DOCUSATE SODIUM LIQ 100 MG/10 ML UDC GT SCH (21:45)
--- NOTE | 2019-06-29 22:00 | NUR ---
RECEIVE PT STABLE ON MV, SETTINGS ARE AC 14 550 +5 @30% FIO2, ALARMS ARE ON AND AUDIBLE, VENT PLUG IN RED OUTLET, TRACH PATENT AND SECURED Addendum: 06/29/19 at 2202 by CONSTANTIN JONES RT Amended: Links added.
[2019-06-30] VITALS (47 sets, daily range): BP systolic 33–159; BP diastolic 13–96
[2019-06-30] MEDS: MEROPENEM 1 G in IV NS 0.9% 100 ML IV SCH ×2 (05:02→18:02)
[2019-06-30] MEDS: JEVITY 1.2 CAL 1,000 ML BOTTLE GT SCH (05:16)
--- NOTE | 2019-06-30 06:13 | NUR ---
END OF SHIFT REPORT Patient in bed, obtunded, eyes open. Sinus Rhythm with PVC in the Tele monitor. Trach intact, vent settings remains the same. Suction secretion PRN. Tolerating tube feeding, minimal gastric residual. Gleason cath to gravity. IV antibiotic as scheduled, Afebrile overnight. Turned and repositioned every 2 hours, offload heels at all times. Fall /Aspiration/ Skin precaution maintained.
[2019-06-30 07:42] LABS: BASOPHILS % (AUTO) 0.2 % (0.0-2.0); EOSINOPHILS % (AUTO) 4.7 % (0.0-6.0); HEMATOCRIT 28 % (33-45); HEMOGLOBIN 8.7 g/dL (11.5-14.8); LYMPHOCYTES # (AUTO) 1.6 /CMM (0.8-4.8); LYMPHOCYTES % (AUTO) 9.6 % (20.0-44.0); MEAN CORPUSCULAR HGB CONC 31 g/dl (31.0-36.0); MEAN CORPUSCULAR VOLUME 86 fL (82-100); MONOCYTES # (AUTO) 1.3 /CMM (0.1-1.30); MONOCYTES % (AUTO) 7.7 % (2.0-12.0); NEUTROPHILS # (AUTO) 13.3 /CMM (1.8-8.9); NEUTROPHILS % (AUTO) 77.8 % (43.0-81.0); PLATELET COUNT (AUTO) 205 /CMM (150-450); RED BLOOD CELL COUNT(AUTO) 3.23 MIL/uL (4.0-5.2); WHITE BLOOD COUNT (AUTO) 17.1 K/uL (4.3-11.0)
[2019-06-30 07:57] LABS: CARBON DIOXIDE 30 mmol/L (21-32); CHLORIDE 94 mmol/L (98-107); CREATININE 2.1 mg/dL (0.6-1.3); GLUCOSE 102 mg/dL (74-106); MAGNESIUM 2.2 mg/dL (1.8-2.4); PHOSPHORUS 4.5 mg/dL (2.5-4.9); SODIUM SERUM 131 mmol/L (136-145); UREA NITROGEN, BLOOD 71 mg/dL (7-18)
--- NOTE | 2019-06-30 08:00 | NUR ---
HOOP EXPANDER OPENING NOTE PATIENT IN BED RESTING COMFORTABLY. PATIENT ON VENT, TOLERATING VENT SETTINGS WELL. SHILEY 8, WITH NEW ADJUSTMENTS DONE PER DR CANELA: AC 14 AND WAS CHANGED TO 10, FIO2 TO 30, TV 550, PEEP 5. PATIENT IN NO ACUTE DISTRESS. NO SOB NOTED. PATIENT BREATHING IS EVEN AND UNLABORED. PATIENT ON TELE MONITORING READING SINUS RHYTHM 60 .SUCTIONED SECRETIONS PRN.PATIENT BED ALARM IS ON. HOB IS ELEVATED. PATIENT SAFETY PRECAUTIONS IN PLACE. PATIENT BED IS LOCKED AND IN LOWEST POSITION. CALL LIGHT WITHIN REACH. WILL CONTINUE TO MONITOR.
--- NOTE | 2019-06-30 09:45 | NUR ---
RT VT DECREASED TO 500, RR DECREASED TO 10 BPM PER MD ORDER. ABG 1 HR POST VENT CHANGES. AND MONITOR PIPDarcy SARAH RN NOTIFIED AND AWARE OF CHANGES. Addendum: 06/30/19 at 1552 by DESIRAE ALMONTE RT Amended: Links added.
[2019-06-30] MEDS: PROSOURCE / PROSTAT (PYXIS) 30 ML UDC GT SCH ×2 (10:09→17:35)
[2019-06-30] MEDS: ASPIRIN 81 MG TAB.CHEW GT SCH (10:10)
[2019-06-30] MEDS: LACTOBACILLUS RHAMNOSUS GG 1 EACH CAP.SPRINK PO SCH ×2 (10:10→17:00)
[2019-06-30] MEDS: CARVEDILOL 3.125 MG TABLET GT SCH ×2 (10:10→17:00)
[2019-06-30] MEDS: FAMOTIDINE (20 MG) 20 MG TABLET GT SCH (10:10)
[2019-06-30] MEDS: FERROUS SULFATE UDC 300 MG/5 ML UDC GT SCH (10:10)
[2019-06-30] MEDS: ENOXAPARIN SODIUM 30 MG/0.3 ML DISP.SYRIN SQ SCH (10:11)
[2019-06-30 11:55] LABS: ABG BASE EXCESS 2.5 mmol/L; ABG OXYGEN SATURATION 95.6 % (92.0-98.5); ABG PCO2 49.5 mmHg (35.0-45.0); ABG PH 7.375 (7.350-7.450); ABG PO2 87.8 mmHg (75.0-100.0); AaDO2 67.9 mmHg; COHb 0.3 % (0.5-1.5); MetHb 0.7 % (0.0-1.5); O2Hb 94.6 % (94.0-97.0); SITE, ABG Left Radial; VENT MODE, BG 500 10 +5 30%
--- NOTE | 2019-06-30 12:10 | NUR ---
RT POST ABG RESULTS SHOWN TO DR. CANELA. D/C PEEP PER MD ORDER. TYREL CARO NOTIFIED AND AWARE OF CHANGES. MONITORING PT CLOSELY FOR ANY CHANGE OF CONDITION. Addendum: 06/30/19 at 1552 by DESIRAE ALMONTE RT Amended: Links added.
--- NOTE | 2019-06-30 12:10 | NUR ---
SEEN BY R.T ABG DONE WITH RESULTS AND WITH NEW ORDERS FROM DR CANELA .NEW CHANGES IN VENT SETTINGS DONE WITH TIDAL VOLUME 500, AC 10 ,FI02 30% PEEP 0. O2 SAT 92-94% SUCTIONED SECRETIONS DONE PRN
--- NOTE | 2019-06-30 13:20 | NUR ---
RT TRACH TUBE CHANGED TO SAME SIZE DUE (SHILEY #8 XLT CUFFED PROXIMIAL) TO POSSIBLE OBSTRUCTION PER MD ORDER. TYREL RN NOTIFIED AND AWARE OF CHANGES. TRACH CHANGED WITH NO RESPIRATORY COMPLICATIONS NOTED. MINIMAL BLOOD NOTED DURING TRACH CHANGE. AIRWAY PATENT AND SECURE WITH TRACH TIE. SUCTIONED AND LAVAGED SMALL AMOUNTS OF THICK, PALE YELLOW SECRETIONS. SpO2 100%, HR 72. SPARE TRACH REPLACED AT BEDSIDE AND AMBU BAG AT HEAD OF BED. BILATERAL BREATH SOUNDS ON AUSCULTATION. RESPIRATIONS EVEN AND UNLABORED AT THIS TIME. NO SOB OR SIGNS OF DISTRESS NOTED. WILL CONTINUE TO MONITOR THE PATIENT CLOSELY FOR ANY CHANGES.
--- NOTE | 2019-06-30 14:00 | NUR ---
REMOVED PT'S VERONICA CATHETER WITH 250 ML YELLOW URINE OUTPUT.
--- NOTE | 2019-06-30 14:00 | NUR ---
TRIED TO CLEAN AND REPOSITION PT WITH 2 PEOPLE ASSIST AND ONE MONITORING PT'S O2 SAT WHICH WAS 98% AND WHEN WE ARE LOWERING DOWN PT'S HEAD TO 45 DEGREES HEIGHT,PT STARTED TO DESATURATE RAPIDLY TO 80% THEN DOWN TO 70%.
--- NOTE | 2019-06-30 14:00 | NUR ---
RT PAGED BY RN TO CHECK THE PATIENT DUE TO VENT ALARMING. WHILE EN ROUTE TO PATIENT'S ROOM, RAPID RESPONSE WAS CALLED OVERHEAD. RTs AT BEDSIDE. BEGAN BAGGING PT WITH 100% O2 VIA AMBU BAG. VITAL SIGNS UNAPPRECIATED. SUCTIONED SMALL AMOUNTS OF THICK PALE YELLOW SECRETIONS. ZEINA JEFFERS ARRIVED AT BEDSIDE. TRANSFER PT TO ICU PER JAMIE JEFFERS.
--- NOTE | 2019-06-30 14:10 | NUR ---
CALLED RAPID RESPONSE. BLD SUGAR 95. RAPID RESPONSE TEAM ARRIVED. BP AND PULSE UNAPPRECIATED.
--- NOTE | 2019-06-30 14:20 | NUR ---
CALLED CODE BLUE AND CPR STARTED, EPINEPHRINE ADMINISTERED AND FLUSHED.
--- NOTE | 2019-06-30 14:22 | NUR ---
DR BOLANOS (ER)ARRIVED AT 1421 ,DR VICTORINA ZARAGOZA MADE AWARE.SECOND EPI VIA IV WAS GIVEN. BP AND PULSE UNAPPRECIATED.
--- NOTE | 2019-06-30 14:24 | NUR ---
DR JEFFERS ARRIVED AND ASSESSED THE PT WITH ORDER TO DO STAT ABG IN ICU ONCE PT IS TRANSFERRED TO ICU.
--- NOTE | 2019-06-30 14:29 | NUR ---
TRANSFERRED TO ICU AND BROUGHT TO ROOM 261 WITH BELONGINGS AND MONITOR WITH THE RT TEAM.REPORT GIVEN TO RENARDFLAT POLISHER.
[2019-06-30] MEDS ORDERED: NOREPINEPHRINE 8 MG in IV D5W 500 ML IV PRN ×2 (14:30→15:30)
--- NOTE | 2019-06-30 14:30 | NUR ---
RT TRANSFERRED PT TO ICU VIA AMBU BAG WITH 100% O2. CARPORT ERECTOR JAMIE JEFFERS AT BEDSIDE TO ASSESS THE PATIENT FURTHER.
--- NOTE | 2019-06-30 14:40 | NUR ---
CALLED PT'S BROTHER, MARIEL MCCLAIN AND LEFT MESSAGE IN VM.CALLED PT'S DAUGHTER ARIK MCKEON 4X BUT THE LINE WAS ALWAYS BUSY. CALLED ARIK'S WORK NUMBER AND LEFT MESSAGE IN VM.
--- NOTE | 2019-06-30 14:50 | NUR ---
received pt from [facility], s/p cardiac arrest, on the vent, obtunded.
--- NOTE | 2019-06-30 15:00 | NUR ---
pt has HR of 25- 35, Dr Quiñonez at the bedside, epi given, HR back to 65, pt still unresponsive, pupils fixed and dilated.
--- NOTE | 2019-06-30 15:05 | NUR ---
HR 25, another epi given, Dr Quiñonez at the bedside intubating patient, pt on levo and epi drips.
--- NOTE | 2019-06-30 15:11 | NUR ---
RT PT WAS MANUALLY VENTILATED. SOME RESISTANCE NOTED AND UNABLE TO PROPERLY VENTILATE AT THIS TIME. ZEINA JAMIE AT BEDSIDE TO ASSESS PT AND DECIDED TO INTUBATE PT WITH 7.5 ETT 24 AT THE LIP. WHILE INTUBATING, THE PATIENT'S TRACH WAS REMOVED. STOMA SITE CLEANED AND COVERED. WAS ABLE TO MANUALLY VENTILATE POST INTUBATION. BREATH SOUNDS EQUAL ON AUSCULTATION. SUCTIONED SMALL AMOUNTS OF THICK PALE YELLOW SECRETIONS. PLACED PT ON MECH VENT WITH FOLLOWING SETTINGS: AC 22, 400, 100% PER MD ORDER. RENARD CARO AWARE AND AT BEDSIDE.
[2019-06-30] MEDS ORDERED: EPINEPHRINE (1:1000) 1 MG in IV D5W 250 ML IV PRN (15:30)
[2019-06-30] MEDS ORDERED: PHENYLEPHRINE 40 MG in IV D5W 250 ML IV PRN (16:00)
[2019-06-30 16:39] LABS: ABG BASE EXCESS -0.8 mmol/L; ABG OXYGEN SATURATION 95.8 % (92.0-98.5); ABG PCO2 59.5 mmHg (35.0-45.0); ABG PO2 95.7 mmHg (75.0-100.0); AaDO2 557.8 mmHg; MetHb 0.9 % (0.0-1.5); O2Hb 94.9 % (94.0-97.0); PEEP,BG 0 cm H2O; SITE, ABG A-Line; VT, ABG 400 mL
--- NOTE | 2019-06-30 18:02 | NUR ---
pt is intubated, SR, PVC's, obtunded, receiving levo at 40mcg and renato at 100mcg, R A line and R Fem TLC intact, v/s stable, no pain, pt cleaned, changed and repositioned q2hrs, patient's family is aware of patient's condition.
[2019-06-30] MEDS ORDERED: EPINEPHRINE (1:10,000) SYRINGE 1 MG/10 ML DISP.SYRIN IVP ONE ×2 (18:18→18:49)
[2019-06-30] MEDS ORDERED: SODIUM BICARBONATE SYR 50 MEQ/50 ML DISP.SYRIN IV ONE (18:49)
[2019-06-30] MEDS ORDERED: NOREPINEPHRINE 16 MG in IV D5W 500 ML IV PRN (19:00)
[2019-06-30] MEDS ORDERED: SUCCINYLCHOLINE CHLORIDE 20 MG/ML VIAL IV ONE (20:18)
[2019-06-30] MEDS: DOCUSATE SODIUM LIQ 100 MG/10 ML UDC GT SCH (20:46)
--- NOTE | 2019-06-30 21:16 | NUR ---
pt currently obtunded. intubated FIO2 100%, RR 30, TV 400 SAT 70% HR 56 BP 112/61. PT currently getting levo @ 12 mcg/min. no urine output noted. DR. MAURER paged and updated on pt status. no new orders given. charge nurse stacy made aware. will continue to monitor pt.
[2019-07-01] VITALS (41 sets, daily range): BP systolic 84–126; BP diastolic 36–75
[2019-07-01 04:59] LABS: BASOPHILS % (AUTO) 0.1 % (0.0-2.0); EOSINOPHILS % (AUTO) 1.1 % (0.0-6.0); HEMATOCRIT 24 % (33-45); HEMOGLOBIN 7.4 g/dL (11.5-14.8); LYMPHOCYTES # (AUTO) 1.6 /CMM (0.8-4.8); LYMPHOCYTES % (AUTO) 7.9 % (20.0-44.0); MEAN CORPUSCULAR HGB CONC 31 g/dl (31.0-36.0); MEAN CORPUSCULAR VOLUME 88 fL (82-100); MONOCYTES # (AUTO) 1.1 /CMM (0.1-1.30); MONOCYTES % (AUTO) 5.6 % (2.0-12.0); NEUTROPHILS # (AUTO) 16.7 /CMM (1.8-8.9); NEUTROPHILS % (AUTO) 85.3 % (43.0-81.0); PLATELET COUNT (AUTO) 189 /CMM (150-450); RED BLOOD CELL COUNT(AUTO) 2.75 MIL/uL (4.0-5.2); WHITE BLOOD COUNT (AUTO) 19.6 K/uL (4.3-11.0)
[2019-07-01 05:18] LABS: CALCIUM, SERUM 8.2 mg/dL (8.5-10.1); CARBON DIOXIDE 26 mmol/L (21-32); CHLORIDE 98 mmol/L (98-107); CREATININE 2.1 mg/dL (0.6-1.3); GLUCOSE 105 mg/dL (74-106); PHOSPHORUS 4.8 mg/dL (2.5-4.9); POTASSIUM 3.5 mmol/L (3.5-5.1); SODIUM SERUM 134 mmol/L (136-145); UREA NITROGEN, BLOOD 69 mg/dL (7-18)
[2019-07-01] MEDS: MEROPENEM 1 G in IV NS 0.9% 100 ML IV SCH ×2 (05:23→17:08)
[2019-07-01 07:56] LABS: ABG BASE EXCESS 0.5 mmol/L; ABG OXYGEN SATURATION 99.1 % (92.0-98.5); ABG PCO2 35.7 mmHg (35.0-45.0); ABG PH 7.452 (7.350-7.450); AaDO2 404.3 mmHg; COHb 0.1 % (0.5-1.5); MetHb 0.9 % (0.0-1.5); O2Hb 98.1 % (94.0-97.0); SITE, ABG A-Line
--- NOTE | 2019-07-01 08:23 | NUR ---
received pt from hedge fund principal, alert, does not follow commands, non communicative, s/p cardiac arrest, SB, PVCs, on the vent, intubated, GT clamped, f/c low output, A line intact, v/s stable, no pain, pt turned and repositioned.
[2019-07-01] MEDS: FERROUS SULFATE UDC 300 MG/5 ML UDC GT SCH (08:48)
[2019-07-01] MEDS: CARVEDILOL 3.125 MG TABLET GT SCH ×2 (08:48→16:30)
[2019-07-01] MEDS: ASPIRIN 81 MG TAB.CHEW GT SCH (08:48)
[2019-07-01] MEDS: FAMOTIDINE (20 MG) 20 MG TABLET GT SCH (08:49)
[2019-07-01] MEDS: PROSOURCE / PROSTAT (PYXIS) 30 ML UDC GT SCH ×2 (08:49→16:31)
[2019-07-01] MEDS: LACTOBACILLUS RHAMNOSUS GG 1 EACH CAP.SPRINK PO SCH ×2 (08:49→16:32)
[2019-07-01] MEDS: ENOXAPARIN SODIUM 30 MG/0.3 ML DISP.SYRIN SQ SCH (08:52)
--- NOTE | 2019-07-01 16:16 | NUR ---
pt is resting in the bed, obtunded, SB, intubated, GT to feeding, f/c low output, v/s stable, no pain, pt cleaned, changed and repositioned q2hrs.
[2019-07-01] MEDS: DOCUSATE SODIUM LIQ 100 MG/10 ML UDC GT SCH (22:00)
[2019-07-02] VITALS (43 sets, daily range): BP systolic 66–139; BP diastolic 27–85
[2019-07-02] MEDS: MEROPENEM 1 G in IV NS 0.9% 100 ML IV SCH ×2 (05:16→17:07)
[2019-07-02 05:20] LABS: BASOPHILS # (AUTO) 0.1 /CMM (0.0-0.2); BASOPHILS % (AUTO) 0.6 % (0.0-2.0); EOSINOPHILS % (AUTO) 4.1 % (0.0-6.0); HEMATOCRIT 25 % (33-45); HEMOGLOBIN 7.8 g/dL (11.5-14.8); LYMPHOCYTES # (AUTO) 1.4 /CMM (0.8-4.8); LYMPHOCYTES % (AUTO) 11.1 % (20.0-44.0); MEAN CORPUSCULAR HGB CONC 31 g/dl (31.0-36.0); MEAN CORPUSCULAR VOLUME 87 fL (82-100); MONOCYTES # (AUTO) 0.9 /CMM (0.1-1.30); MONOCYTES % (AUTO) 6.8 % (2.0-12.0); NEUTROPHILS # (AUTO) 9.8 /CMM (1.8-8.9); NEUTROPHILS % (AUTO) 77.4 % (43.0-81.0); PLATELET COUNT (AUTO) 173 /CMM (150-450); RED BLOOD CELL COUNT(AUTO) 2.89 MIL/uL (4.0-5.2); WHITE BLOOD COUNT (AUTO) 12.7 K/uL (4.3-11.0)
[2019-07-02 05:32] LABS: CALCIUM, SERUM 8.9 mg/dL (8.5-10.1); CARBON DIOXIDE 29 mmol/L (21-32); CHLORIDE 96 mmol/L (98-107); CREATININE 2.6 mg/dL (0.6-1.3); GLUCOSE 118 mg/dL (74-106); MAGNESIUM 2.1 mg/dL (1.8-2.4); PHOSPHORUS 5.1 mg/dL (2.5-4.9); POTASSIUM 3.9 mmol/L (3.5-5.1); SODIUM SERUM 132 mmol/L (136-145)
[2019-07-02 05:33] LABS: UREA NITROGEN, BLOOD 86 mg/dL (7-18)
--- NOTE | 2019-07-02 06:58 | NUR ---
PATIENT REMAINS IN NO ACUTE DISTRESS IN BED. PATIENT DID NOT HAVE ANY SIGNIFICANT CHANGE IN CONDITION DURING SHIFT. ALL NEEDS MET, ALL ORDERS CARRIED OUT. PATIENT TOLERATED VENT SETTING WELL. PATIENT TOLERATED FEEDING WELL WITH 0 RESIDUALS. WILL ENDORSE CARE TO AM RN FOR CONTINUITY OF CARE.
--- NOTE | 2019-07-02 08:22 | NUR ---
received pt from shift coordinator, obtunded, SB, on the vent intubated, lungs partially congested, GT to feeding tolerates well, A line intact, f/c low output, MD aware, v/s stable, no pain, pt turned and repositioned.
[2019-07-02] MEDS: LACTOBACILLUS RHAMNOSUS GG 1 EACH CAP.SPRINK PO SCH ×2 (08:30→16:49)
[2019-07-02] MEDS: FAMOTIDINE (20 MG) 20 MG TABLET GT SCH (08:30)
[2019-07-02] MEDS: FERROUS SULFATE UDC 300 MG/5 ML UDC GT SCH (08:30)
[2019-07-02] MEDS: CARVEDILOL 3.125 MG TABLET GT SCH ×2 (08:31→16:51)
[2019-07-02] MEDS: ASPIRIN 81 MG TAB.CHEW GT SCH (08:32)
[2019-07-02] MEDS: PROSOURCE / PROSTAT (PYXIS) 30 ML UDC GT SCH ×2 (08:33→16:49)
[2019-07-02] MEDS: ENOXAPARIN SODIUM 30 MG/0.3 ML DISP.SYRIN SQ SCH (08:47)
[2019-07-02 10:16] LABS: ABG OXYGEN SATURATION 98.6 % (92.0-98.5); ABG PCO2 32.4 mmHg (35.0-45.0); ABG PH 7.506 (7.350-7.450); ABG PO2 158.9 mmHg (75.0-100.0); AaDO2 161.2 mmHg; COHb 0.3 % (0.5-1.5); MetHb 0.8 % (0.0-1.5); O2Hb 97.5 % (94.0-97.0); SITE, ABG A-Line; VENT MODE, BG A/C; VT, ABG 400 mL
--- NOTE | 2019-07-02 16:32 | NUR ---
pt is resting in the bed, obtunded, SR, intubated, tolerated feeding, no acute distress during the day, v/s stable, no pain, pt cleaned, changed and repositioned q2hrs.
--- NOTE | 2019-07-02 19:00 | NUR ---
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 Comfort care done,needs attended.Possible downgrade to PADMA. Addendum: 07/02/19 at 2019 by GIOVANNI LANDRY RN Please disregard above note,documented on the wrong patient.
--- NOTE | 2019-07-02 19:00 | NUR ---
Received patient, orally intubated on the ventilator on AC mode,lethargic,eyes open( but not tracking),at this time patient bucking the ventilator,tachypneic , PIP=33,,with deep inspiration but saturating well 100 %, ( may need sedation if does not settle), will closely monitor for now. Old trache site/stoma still open ,observed some air leakage from the site, covered with gauze with some secretions noted but minimal. Generalized edema , with G tube with on going tube feeding ,Aspriation precaution observed. 2000 Breathing better,patient calmer, PIP=26.
[2019-07-02] MEDS: DOCUSATE SODIUM LIQ 100 MG/10 ML UDC GT SCH (21:41)
--- NOTE | 2019-07-02 22:00 | NUR ---
On and off patient gets tachypneic with deep labored inspiratory effort, with PIP in the high 30's -40's bucking the ventilator. 2229 Called MD motion picture camera lens technician for sedation order.Dr. Pickett responded, ordered Ativan PRN.
[2019-07-02] MEDS: LORAZEPAM INJ 2 MG/ML VIAL IV PRN (22:45)
[2019-07-03] VITALS (35 sets, daily range): BP systolic 92–141; BP diastolic 46–84
--- NOTE | 2019-07-03 | NUR ---
Calmer after giving the Ativan,stoma still with air leakage,reinforced dressing to prevent air leakage.
--- NOTE | 2019-07-03 04:00 | NUR ---
Status unchanged.old trache stoms still with air leakage,still on and off gets tachypneic, with labored breathing but saturating well 99-100%.Continue to monitor ,Ativan q 4hrs prn.
[2019-07-03] MEDS: LORAZEPAM INJ 2 MG/ML VIAL IV PRN ×3 (04:18→16:16)
[2019-07-03 04:49] LABS: BASOPHILS # (AUTO) 0.1 /CMM (0.0-0.2); BASOPHILS % (AUTO) 0.6 % (0.0-2.0); EOSINOPHILS % (AUTO) 3.7 % (0.0-6.0); HEMATOCRIT 27 % (33-45); HEMOGLOBIN 8.3 g/dL (11.5-14.8); LYMPHOCYTES # (AUTO) 1.6 /CMM (0.8-4.8); LYMPHOCYTES % (AUTO) 14.3 % (20.0-44.0); MEAN CORPUSCULAR HGB CONC 31 g/dl (31.0-36.0); MEAN CORPUSCULAR VOLUME 89 fL (82-100); MONOCYTES % (AUTO) 8.4 % (2.0-12.0); NEUTROPHILS # (AUTO) 8.4 /CMM (1.8-8.9); PLATELET COUNT (AUTO) 181 /CMM (150-450); RED BLOOD CELL COUNT(AUTO) 3.05 MIL/uL (4.0-5.2); WHITE BLOOD COUNT (AUTO) 11.5 K/uL (4.3-11.0)
[2019-07-03] MEDS: MEROPENEM 1 G in IV NS 0.9% 100 ML IV SCH ×2 (05:31→18:18)
[2019-07-03 05:33] LABS: ALANINE AMINOTRANSFERASE 37 U/L (12-78); ALBUMIN 2.1 g/dL (3.4-5.0); ALKALINE PHOSPHATASE 93 U/L (46-116); ASPARTATE AMINOTRANSFERASE 33 U/L (15-37); BILIRUBIN,TOTAL 0.6 mg/dL (0.2-1.0); CALCIUM, SERUM 9.5 mg/dL (8.5-10.1); CARBON DIOXIDE 30 mmol/L (21-32); CHLORIDE 97 mmol/L (98-107); CREATININE 2.5 mg/dL (0.6-1.3); GLUCOSE 109 mg/dL (74-106); MAGNESIUM 2.4 mg/dL (1.8-2.4); PHOSPHORUS 5.8 mg/dL (2.5-4.9); POTASSIUM 4.2 mmol/L (3.5-5.1); SODIUM SERUM 135 mmol/L (136-145); TOTAL PROTEIN, SERUM 6.8 g/dL (6.4-8.2)
[2019-07-03 05:47] LABS: UREA NITROGEN, BLOOD 89 mg/dL (7-18)
--- NOTE | 2019-07-03 06:00 | NUR ---
No changed. saturating 100 %, still HR in the low 60's ,BP stable.
--- NOTE | 2019-07-03 07:00 | NUR ---
Report given to Gina CARO.Patient stable at [facility] moment.
--- NOTE | 2019-07-03 07:05 | NUR ---
SPECIAL EDUCATION ITINERANT TEACHER OPENING NOTES REPORT GIVEN BY VANIA HUNT .RECEIVED PT LYING ON BED WITH ETT,7.5 AC 18 TV 400 FIO2 50% AND PEEP 0.PT TOLERATING WELL FOR NOW.PT IS OBTUNDED AND LETHARGIC.ON TELE HR IS 58 WITH SINUS BRADYCARDIA.ON VERONICA CATHETER IS IN PLACE.RIGHT UPPER ARM MIDLINE PRESENT AND TRIPLE LUMEN ON RIGHT FEMORAL WITH A LINE PRESENT WITH PRESSURE IV BAG RUNNING IN A LINE.ON G TUBE WITH JEVITY 1.2 @50MLS/HR IS RUNNING.SITE IS CLEAN/DRY/INTACT,NO INFILTRATION PRESENT.SAFETY IS MAINTAINED AT ALL TIMES,BED IS IN LOW POSITION AND LOCKED,CALL LIGHT IS WITHIN REACH.WILL CONTINUE TO MONITOR THE PT CLOSELY. Addendum: 07/03/19 at 0759 by VAHID LOGAN RN REPORT GIVEN BY VANIA MARTIN
[2019-07-03] MEDS: FERROUS SULFATE UDC 300 MG/5 ML UDC GT SCH (08:08)
[2019-07-03] MEDS: FAMOTIDINE (20 MG) 20 MG TABLET GT SCH (08:08)
[2019-07-03] MEDS: LACTOBACILLUS RHAMNOSUS GG 1 EACH CAP.SPRINK PO SCH ×2 (08:09→16:12)
[2019-07-03] MEDS: ASPIRIN 81 MG TAB.CHEW GT SCH (08:09)
[2019-07-03] MEDS: ENOXAPARIN SODIUM 30 MG/0.3 ML DISP.SYRIN SQ SCH (08:11)
[2019-07-03] MEDS: CARVEDILOL 3.125 MG TABLET GT SCH ×2 (08:13→16:17)
[2019-07-03] MEDS: PROSOURCE / PROSTAT (PYXIS) 30 ML UDC GT SCH ×2 (08:16→16:17)
[2019-07-03] MEDS: ALBUMIN 25% 25 GM in PREMIX 1 EA IV SCH (14:14)
[2019-07-03] MEDS: JEVITY 1.2 CAL 1,000 ML BOTTLE GT SCH (16:22)
--- NOTE | 2019-07-03 19:02 | NUR ---
CRYPTOGRAPHER NOTES PT VOMITED X1,STOP THE G TUBE FEEDING,RESIDUAL NOTED 50ML.ZOFRAN IV 4MG IS GIVEN.MONITORING THE PT CLOSELY.
--- NOTE | 2019-07-03 19:24 | NUR ---
APPAREL PATTERNMAKER CLOSING NOTES PT IS LYING ON BED,NOTED WITH VOMITING.HOLD THE G TUBE FEEDING FOR NOW,MINIMAL GASTRIC RESIDUAL NOTED.ON SINUS BRADYCARDIA WITH 57 BPM[address]IV LINE IS IN PLACE WITH IV FLUID TKO IS RUNNING.VERONICA CATH IS IN PLACE,ENDORSED TO HEAT TREAT INSPECTOR RN FOR CODY.
--- NOTE | 2019-07-03 20:00 | NUR ---
REGULATORY AFFAIRS PORTFOLIO LEADER - NOTES - RECEIVED PT IN BED WITH ETT,7.5 AC 18 TV 400 FIO2 50% AND PEEP 0. PT TOLERATING WELL FOR NOW. PT IS OBTUNDED. ON TELE HR IS 50S WITH SINUS BRADYCARDIA. ON VERONICA CATHETER IS IN PLACE. RIGHT UPPER ARM MIDLINE PRESENT AND TRIPLE LUMEN ON RIGHT FEMORAL WITH A LINE PRESENT WITH PRESSURE IV BAG RUNNING IN A LINE. ON G TUBE WITH JEVITY 1.2 @ 50 MLS/HR IS RUNNING. SITE IS CLEAN/DRY/INTACT, NO INFILTRATION PRESENT. SAFETY IS MAINTAINED AT ALL TIMES, BED IS IN LOW POSITION AND LOCKED. WILL CONTINUE TO MONITOR THE PT CLOSELY.
[2019-07-03] MEDS: DOCUSATE SODIUM LIQ 100 MG/10 ML UDC GT SCH (22:00)
[2019-07-04] VITALS (41 sets, daily range): BP systolic 94–159; BP diastolic 39–87
[2019-07-04] MEDS: ALBUMIN 25% 25 GM in PREMIX 1 EA IV SCH (03:35)
[2019-07-04 04:35] LABS: BASOPHILS % (AUTO) 0.4 % (0.0-2.0); EOSINOPHILS % (AUTO) 6.1 % (0.0-6.0); HEMATOCRIT 26 % (33-45); HEMOGLOBIN 8.2 g/dL (11.5-14.8); LYMPHOCYTES # (AUTO) 0.9 /CMM (0.8-4.8); LYMPHOCYTES % (AUTO) 9.8 % (20.0-44.0); MEAN CORPUSCULAR HGB CONC 31 g/dl (31.0-36.0); MEAN CORPUSCULAR VOLUME 89 fL (82-100); MONOCYTES # (AUTO) 0.7 /CMM (0.1-1.30); MONOCYTES % (AUTO) 7.8 % (2.0-12.0); NEUTROPHILS # (AUTO) 6.7 /CMM (1.8-8.9); NEUTROPHILS % (AUTO) 75.9 % (43.0-81.0); PLATELET COUNT (AUTO) 148 /CMM (150-450); RED BLOOD CELL COUNT(AUTO) 2.91 MIL/uL (4.0-5.2); WHITE BLOOD COUNT (AUTO) 8.9 K/uL (4.3-11.0)
[2019-07-04 05:00] LABS: CALCIUM, SERUM 9.6 mg/dL (8.5-10.1); CARBON DIOXIDE 33 mmol/L (21-32); CHLORIDE 98 mmol/L (98-107); CREATININE 2.2 mg/dL (0.6-1.3); GLUCOSE 86 mg/dL (74-106); MAGNESIUM 2.4 mg/dL (1.8-2.4); PHOSPHORUS 6.4 mg/dL (2.5-4.9); POTASSIUM 4.3 mmol/L (3.5-5.1); SODIUM SERUM 138 mmol/L (136-145)
[2019-07-04 05:01] LABS: UREA NITROGEN, BLOOD 91 mg/dL (7-18)
[2019-07-04] MEDS: MEROPENEM 1 G in IV NS 0.9% 100 ML IV SCH ×2 (05:52→17:14)
--- NOTE | 2019-07-04 06:37 | NUR ---
DR LIRA CALLED FOR AN UPDATE ON PT STATUS, PLANS TO DO FLEXIBLE BRONCHOSCOPY AND REVISION OF TRACHEOSTOMY. PT MADE NPO OF NOW, WILL ENDORSE TO AM SHIFT TO HOLD LOVENOX, WILL CALL FAMILY TO OBTAIN CONSENT FOR PROCEDURE.
--- NOTE | 2019-07-04 06:43 | NUR ---
CALL TO ARIK MCKEON AT [phone] - LINE OFF THE HOOK, CALL TO ARIK MCKEON AT [phone] - I GOT VOICEMAIL FOR AN OLDER MAN. THEN CALL TO MARIEL MCCLAIN (BROTHER) AT [phone] - GOT VOICEMAIL AT HOME, LEFT MESSAGE TO CALL [facility] ICU.
--- NOTE | 2019-07-04 07:35 | NUR ---
POULTRY PACKER OPENING NOTES RECEIVED REPORT FROM PM NURSE.PATIENT IN BED .VENT DEPENDANT .WITH ETT,7.5/24 @ LIP LEVEL. TOLERATING SETTINGS WELL.PT OPEN EYES.ON TELE HR IS 58 WITH SINUS BRADYCARDIA. VERONICA CATHETER IS IN PLACE.RIGHT UPPER ARM MIDLINE PRESENT AND TRIPLE LUMEN ON RIGHT FEMORAL WITH A LINE PRESENT WITH PRESSURE IV BAG RUNNING IN A LINE.SITE IS CLEAN/DRY/INTACT,NO INFILTRATION PRESENT.SAFETY MEASURES IN PLACE.BED IS IN LOW POSITION AND LOCKED,CALL LIGHT IS WITHIN REACH.BED ALARM ON.SRX3.NPO FOR BRONCHOSCOPY AND REVISION OF TRACHEOSTOMY.WILL CONTINUE TO MONITOR .
--- NOTE | 2019-07-04 07:43 | NUR ---
RT Pt received orally intubated with a 7.5 ETT secured at 24cm at the lip line. Pt does not follow commands. Vent is plugged into red outlet. No SOB or respiratory distress noted at this time. Addendum: 07/04/19 at 0910 by RADHA ROJO RT Amended: Links added.
--- NOTE | 2019-07-04 07:58 | NUR ---
ENVELOPE FOLD OPERATOR NOTE CALL MADE TO DAUGHTER TO GET CONSENT FOR PROCEDURE.LEFT MESSAGE .WAITING TO CALL BACK.
[2019-07-04] MEDS: ASPIRIN 81 MG TAB.CHEW GT SCH (08:14)
[2019-07-04] MEDS: CARVEDILOL 3.125 MG TABLET GT SCH ×2 (08:14→17:13)
[2019-07-04] MEDS: FERROUS SULFATE UDC 300 MG/5 ML UDC GT SCH (08:15)
[2019-07-04] MEDS: ENOXAPARIN SODIUM 30 MG/0.3 ML DISP.SYRIN SQ SCH (08:15)
[2019-07-04] MEDS: LACTOBACILLUS RHAMNOSUS GG 1 EACH CAP.SPRINK PO SCH ×2 (08:15→16:41)
[2019-07-04] MEDS: PROSOURCE / PROSTAT (PYXIS) 30 ML UDC GT SCH ×2 (08:15→16:41)
--- NOTE | 2019-07-04 08:16 | NUR ---
DISTRICT ADVISER NOTE 9AM MEDS NOT ADMINISTERED .PATIENT NPO FOR SURGERY.LOVENOX ON HOLD.
[2019-07-04 09:19] LABS: ABG BASE EXCESS 5.3 mmol/L; ABG OXYGEN SATURATION 96.9 % (92.0-98.5); ABG PCO2 48.9 mmHg (35.0-45.0); ABG PH 7.413 (7.350-7.450); ABG PO2 96.5 mmHg (75.0-100.0); AaDO2 132.5 mmHg; COHb 0.8 % (0.5-1.5); MetHb 0.6 % (0.0-1.5); O2Hb 95.5 % (94.0-97.0); PEEP,BG 0 cm H2O; SITE, ABG A-Line; VT, ABG 400 mL
--- NOTE | 2019-07-04 10:22 | NUR ---
FIBERGLASS DOWEL DRAWING OPERATOR NOTE LEFT MESSAGE TO DAUGHTER STEVIE TO CALL BACK TO GET CONSENT FOR PROCEDURE.SPOKE TO BROTHER EDGARDO AND MARIEL.THEY SAID THEY WILL TRY TO CONTACT DAUGHTER FOR FURTHER INFORMATION.THEY ARE NOT AWARE ABOUT WHO IS TAKING PRIMARY DECISION FOR HER.LEFT MESSAGE TO ALLYN CHAYITO TO CALL BACK OR HAVE PATIENT DAUGHTERS TO CALL ME BACK.
--- NOTE | 2019-07-04 11:10 | NUR ---
ROLLER LEVELER NOTE SEEN BY ,UPDATED ABOUT PATIENT CONDITION ,MADE AWARE AWAITING CONSENT FROM.OK TO DO PROCEDURE WITH 2 DOCTORS CONSENT.ROBY FROM SURGERY MADE AWARE.WAITING TO FAMILY TO CALL BACK FOR CONSENT TO DO PROCEDURE.
--- NOTE | 2019-07-04 11:30 | NUR ---
PARAPROFESSIONAL INTERPRETER NOTE GOT CALL FROM DAUGHTER HARSH CANADA TO DO PROCEDURE BRONCHOSCOPY WITH TRACH.ANESTHESIA AND BLOOD TRANSFUSION.VERIFIED WITH 2 RN .ROBY FROM SURGERY MADE AWARE .LEFT MESSAGE TO AND .
--- NOTE | 2019-07-04 12:54 | NUR ---
HEALTH INFORMATICS ADVISOR NOTED SEEN BY UPDATED ABOUT PATIENT CONDITION WITH C X RAY RESULT SHOWING POSSIBLE DISLOCATION OF R GLENOHUMERAL JOINT.GOT NEW ORDER TO DO ANOTHER X RAY R HUMERAL JOINT.
--- NOTE | 2019-07-04 12:58 | NUR ---
CHEMICAL PLANT OPERATOR SUPERVISOR NOTE X RAY SCHEDULED FOR 1530. PER OR PROCEDURE SCHEDULED FOR 1300.
--- NOTE | 2019-07-04 15:00 | NUR ---
CELL ATTENDANT NOTE CALL MADE TO OR.COMING TO POWER HOUSE CONTROL ROOM OPERATOR PATIENT SOON.PATIENT STILL NPO.WILL CONTINUE TO MONITOR.
--- NOTE | 2019-07-04 15:45 | NUR ---
FACULTY MEMBER NOTE CALL MADE TO RADIOLOGY,MADE AWARE THAT PATIENT IN ROOM OK TO TAKE X RAY.BUSY NOW.WILL F/U LATER.
--- NOTE | 2019-07-04 16:33 | NUR ---
BUDGET MANAGER NOTE CALL MADE TO SURGERY,TOLD THAT PROCEDURE TODAY IS CANCELLED .FOLLOW UP WITH . PER WILL DO PROCEDURE ON THURSDAY.WILL CONTINUE TO MONITOR.
[2019-07-04] MEDS: JEVITY 1.2 CAL 1,000 ML BOTTLE GT SCH (16:36)
[2019-07-04] MEDS: FAMOTIDINE (20 MG) 20 MG TABLET GT SCH (16:41)
--- NOTE | 2019-07-04 19:30 | NUR ---
Received patient open eyes to touch.Dx: ACUTE RESPIRATORY FAILURE,NSTEMI,SEPSIS. Patient Non verbal orally intubated to vent on AC mode with prescribed settings..No respiratory distress noted.SR per monitor.VSS.Hemodynamically stable.Nutrition Jevity infusing via GT well tolerated.No residual noted.HOB elevated.FC to gravity drainage. No acute distress noted.Turned and repositioned.
--- NOTE | 2019-07-04 21:35 | NUR ---
Portable X RAY to right shoulder done.Awaiting result.
[2019-07-04] MEDS: DOCUSATE SODIUM LIQ 100 MG/10 ML UDC GT SCH (22:00)
[2019-07-05] VITALS (33 sets, daily range): BP systolic 108–146; BP diastolic 39–93
[2019-07-05] MEDS ORDERED: IV NS 0.9% 500 ML BAG IV ONE
--- NOTE | 2019-07-05 | NUR ---
Patient resting .VSS.No acute distress noted.AM care done.Wound care done.Suctioned secretions and oral care done.Turned and repositioned.
[2019-07-05 04:27] LABS: BASOPHILS % (AUTO) 0.3 % (0.0-2.0); EOSINOPHILS % (AUTO) 4.6 % (0.0-6.0); HEMATOCRIT 25 % (33-45); HEMOGLOBIN 8.1 g/dL (11.5-14.8); LYMPHOCYTES # (AUTO) 1.2 /CMM (0.8-4.8); LYMPHOCYTES % (AUTO) 19.2 % (20.0-44.0); MEAN CORPUSCULAR HGB CONC 32 g/dl (31.0-36.0); MEAN CORPUSCULAR VOLUME 91 fL (82-100); MONOCYTES # (AUTO) 0.6 /CMM (0.1-1.30); MONOCYTES % (AUTO) 9.1 % (2.0-12.0); NEUTROPHILS # (AUTO) 4.2 /CMM (1.8-8.9); NEUTROPHILS % (AUTO) 66.8 % (43.0-81.0); PLATELET COUNT (AUTO) 149 /CMM (150-450); RED BLOOD CELL COUNT(AUTO) 2.81 MIL/uL (4.0-5.2); WHITE BLOOD COUNT (AUTO) 6.3 K/uL (4.3-11.0)
[2019-07-05 04:37] LABS: CALCIUM, SERUM 9.4 mg/dL (8.5-10.1); CARBON DIOXIDE 31 mmol/L (21-32); CHLORIDE 98 mmol/L (98-107); CREATININE 2.3 mg/dL (0.6-1.3); GLUCOSE 113 mg/dL (74-106); MAGNESIUM 2.4 mg/dL (1.8-2.4); PHOSPHORUS 6.8 mg/dL (2.5-4.9); POTASSIUM 4.6 mmol/L (3.5-5.1); SODIUM SERUM 138 mmol/L (136-145)
[2019-07-05 04:38] LABS: UREA NITROGEN, BLOOD 98 mg/dL (7-18)
[2019-07-05] MEDS ORDERED: IV NS 0.9% 250 ML IV ONE (05:00)
[2019-07-05] MEDS: MEROPENEM 1 G in IV NS 0.9% 100 ML IV SCH ×2 (05:06→17:05)
--- NOTE | 2019-07-05 06:45 | NUR ---
Patient resting.BM x1 paste brown stools.Kept clean and dry.Turned and repositioned. NO significant changes noted.VS remains stable.Patient to keep NPO post MN for Flexible Bronchoscopy and Revision of Trach in AM 07/06/19 per MD.Will endorse to day shift RN.
--- NOTE | 2019-07-05 08:00 | NUR ---
received pt from build engineer, obtunded, SR, on the vent, lungs partially congested, anasarca, GT to feeding, f/c low output, A line intact, v/s stable, no pain, pt turned and repositioned.
[2019-07-05] MEDS: FERROUS SULFATE UDC 300 MG/5 ML UDC GT SCH (08:48)
[2019-07-05] MEDS: LACTOBACILLUS RHAMNOSUS GG 1 EACH CAP.SPRINK PO SCH ×2 (08:48→17:01)
[2019-07-05] MEDS: CARVEDILOL 3.125 MG TABLET GT SCH ×2 (08:49→17:05)
[2019-07-05] MEDS: ASPIRIN 81 MG TAB.CHEW GT SCH (08:49)
[2019-07-05] MEDS: FAMOTIDINE (20 MG) 20 MG TABLET GT SCH (08:49)
[2019-07-05] MEDS: ENOXAPARIN SODIUM 30 MG/0.3 ML DISP.SYRIN SQ SCH (08:50)
[2019-07-05] MEDS: PROSOURCE / PROSTAT (PYXIS) 30 ML UDC GT SCH ×2 (08:51→17:01)
[2019-07-05] MEDS ORDERED: ACETAMINOPHEN 650 MG/20.3 ML UDC NG PRN (12:00)
--- NOTE | 2019-07-05 16:56 | NUR ---
pt is resting in the bed, SR, tolerates feeding, f/c low output, v/s stable, no pain, pt cleaned, changed and repositioned q2hrs.
--- NOTE | 2019-07-05 19:40 | NUR ---
RN NOTES RECEIVED PATIENT ORALLY INTUBATED WITH ETT 7.5 AND 24 CM AT LIP CONNECTED TO VENT WITH AC 18 TV 400 FIO2 40% NO PEEP TOLERATED WELL. SATURATION 100%. O SOB OR ACUTE RESPIRATORY DISTRESS. BILATERAL BREATH SOUND DIMINISHED SUCTIONED WITH YELLOWISH SMALL THICK SECRETION. AFEBRILE. VSS. PATIENT IS OBTUNDED. OPENS EYES NOT TRACKING. SR WITH INVERTED TWAVE AND FIRST DEGREE AV BLOCK. IV SITE ON SAMMY MIDLINE AND RIGHT FEMORAL TLC INTACT AND PATENT. A-LINE ON RIGHT FEMORAL CALIBRATED. PATIENT HAS GTF OF JEVITY RUNNING @ 50 ML/HR INTACT AND PATENT. TURNED AND REPOSITIONED FOR SKIN MANAGEMENT. KEPT PT CLEAN AND DRY. WILL CLOSELY MONITOR.
--- NOTE | 2019-07-05 20:07 | NUR ---
RT Pt received on mechanical ventilation via ETT, secured via anchorfast. Pt is awake but does not follow commands. Vent is plugged into red outlet. Secretions are small, schulte, thick. No SOB or respiratory distress noted. HOB at 30 degrees. Ambu bag at head of bed. Addendum: 07/05/19 at 2009 by ISAAC CORTES RT Amended: Links added.
[2019-07-05] MEDS: DOCUSATE SODIUM LIQ 100 MG/10 ML UDC GT SCH (21:17)
[2019-07-06] VITALS (37 sets, daily range): BP systolic 64–155; BP diastolic 17–98
--- NOTE | 2019-07-06 00:20 | NUR ---
RN NOTES 12MN- HELD GTF FOR PREPARATION OF BRONC WITH REVISION OF TRACH. PATIETN REMAINED STABLE AT THIS TIME.,
[2019-07-06 04:43] LABS: BASOPHILS % (AUTO) 0.3 % (0.0-2.0); EOSINOPHILS % (AUTO) 4.4 % (0.0-6.0); HEMATOCRIT 26 % (33-45); HEMOGLOBIN 8.4 g/dL (11.5-14.8); LYMPHOCYTES # (AUTO) 1.1 /CMM (0.8-4.8); MEAN CORPUSCULAR HGB CONC 32 g/dl (31.0-36.0); MEAN CORPUSCULAR VOLUME 89 fL (82-100); MONOCYTES # (AUTO) 0.7 /CMM (0.1-1.30); MONOCYTES % (AUTO) 10.2 % (2.0-12.0); NEUTROPHILS # (AUTO) 4.9 /CMM (1.8-8.9); NEUTROPHILS % (AUTO) 70.1 % (43.0-81.0); PLATELET COUNT (AUTO) 140 /CMM (150-450); RED BLOOD CELL COUNT(AUTO) 2.94 MIL/uL (4.0-5.2)
[2019-07-06 04:54] LABS: CALCIUM, SERUM 9.3 mg/dL (8.5-10.1); CARBON DIOXIDE 33 mmol/L (21-32); CHLORIDE 101 mmol/L (98-107); CREATININE 2.2 mg/dL (0.6-1.3); GLUCOSE 96 mg/dL (74-106); MAGNESIUM 2.4 mg/dL (1.8-2.4); PHOSPHORUS 6.6 mg/dL (2.5-4.9); POTASSIUM 4.5 mmol/L (3.5-5.1); SODIUM SERUM 139 mmol/L (136-145)
[2019-07-06 04:58] LABS: UREA NITROGEN, BLOOD 97 mg/dL (7-18)
[2019-07-06] MEDS: MEROPENEM 1 G in IV NS 0.9% 100 ML IV SCH ×2 (06:03→17:30)
--- NOTE | 2019-07-06 06:55 | NUR ---
RN NOTES PATIENT ASLEEP WELL ON BED. NO SIGNIFICANT CHANGES CONTINUE WITH ETT AND SAME VENT SETTING ORDERED. PATIENT WILL HAVE PROCEDURE TODAY KEPT PATIETN NPO/ GTF HELD SINCE 12 MIDNIGHT. KEPT PT CLEAN AND DRY. BED BATH DONE AND TOLERATED WELL. A- LINE KEPT IN PLACED SUCTIONED MORE OFTEN PATIENT SECRETION WAS THICK AND YELLOWISH. WILL ENDORSED CONTINUITY OF CARE TO AM NURSE.
[2019-07-06] MEDS ORDERED: IV NS 0.9% 250 ML IV PRN (07:00)
[2019-07-06] MEDS ORDERED: IV NS 0.9% 500 ML IV PRN (07:00)
--- NOTE | 2019-07-06 08:00 | NUR ---
ICU/RN INITIAL NOTES,AM RECEIVED BEDSIDE REPORT FROM NIGHT NURSE. PT OBTUNDED, DOES NOT FOLLOW COMMANDS. OPENS EYES, DOES NOT TRACK. PT INTUBATED 7.5 AND 24CM AT THE LIP. ON VENT SETTINGS ORDERED BY THE MD, NO DISTRESS NOTED. SINUS ON TELE. PT CURRENTLY NPO, SCHEDULED FOR TRACH REVISION/PLACEMENT AT 0930, CONSENTS IN CHART. VERONICA CATH IN PLACE, DRAINING CLOUDY URINE. RIGHT FEMORAL ART LINE IN PLACE, RIGHT FEMORAL TLC, AND SAMMY MIDLINE PATENT AND INTACT. ALL NEEDS WILL BE ATTENDED TO, SAFETY MEASURES TAKEN, BED IN LOW POSITION, SIDE RAILS UP.
[2019-07-06] MEDS ORDERED: ANESTHESIA TRAY IN PYXIS 1 EA TRAY MC ONE (08:16)
[2019-07-06] MEDS: ASPIRIN 81 MG TAB.CHEW GT SCH (08:44)
[2019-07-06] MEDS: FAMOTIDINE (20 MG) 20 MG TABLET GT SCH (08:44)
[2019-07-06] MEDS: CARVEDILOL 3.125 MG TABLET GT SCH ×2 (08:44→17:00)
[2019-07-06] MEDS: FERROUS SULFATE UDC 300 MG/5 ML UDC GT SCH (08:44)
[2019-07-06] MEDS: PROSOURCE / PROSTAT (PYXIS) 30 ML UDC GT SCH ×2 (08:44→17:27)
[2019-07-06] MEDS: LACTOBACILLUS RHAMNOSUS GG 1 EACH CAP.SPRINK PO SCH ×2 (08:45→17:29)
[2019-07-06] MEDS: ENOXAPARIN SODIUM 30 MG/0.3 ML DISP.SYRIN SQ SCH (08:45)
--- NOTE | 2019-07-06 09:20 | NUR ---
ICU/RN: OR TEAM AT BEDSIDE, PT TRANSFERRED TO OR FOR TRACH REVISION. CONSENTS AND CHECKLIST COMPLETED AND PLACED IN CHART.
[2019-07-06] MEDS ORDERED: SUCCINYLCHOLINE CHLORIDE 20 MG/ML VIAL ONE ×2 (10:16→10:34)
--- NOTE | 2019-07-06 11:00 | NUR ---
ICU/RN: PT BACK TO ROOM ACCOMPANIED BY OR TEAM AND ANESTHESIOLOGIST. TRACH REVISION DONE. BIVONA 28 PLACED. BLEEDING NOTED, WILL MONITOR.
[2019-07-06 14:41] LABS: ABG BASE EXCESS 2.6 mmol/L; ABG OXYGEN SATURATION 97.6 % (92.0-98.5); ABG PCO2 39.7 mmHg (35.0-45.0); ABG PH 7.447 (7.350-7.450); ABG PO2 109.4 mmHg (75.0-100.0); AaDO2 130.1 mmHg; COHb 0.6 % (0.5-1.5); MetHb 0.6 % (0.0-1.5); O2Hb 96.4 % (94.0-97.0); SITE, ABG Left Radial; VENT MODE, BG AC 18 400 40% +0
--- NOTE | 2019-07-06 16:00 | NUR ---
ICU/RN: ART LINE ZEROED AND CALIBRATED. WAVEFORM DAMPENED, INACCURATE BP DISPLAYED. INFORMED CORKYFUSING FURNACE LOADER. WILL FOLLOW NIBP READING.
[2019-07-06] MEDS: JEVITY 1.2 CAL 1,000 ML BOTTLE GT SCH (17:30)
--- NOTE | 2019-07-06 18:39 | NUR ---
ICU/RN ENDING NOTES,AM BEDSIDE REPORT WILL BE ENDORSED TO NIGHT NURSE FOR CODY. PT OBTUNDED, OPENS EYES, DOES NOT FOLLOW COMMANDS. SINUS ON TELE. TRACH TO VENT WITH SETTINGS ORDERED BY MD. NEW BIVONA TRACH PLACED THIS AM, SOME BLEEDING NOTED, DRESSING CHANGED, PT SUCTIONED. TUBE FEEDING RESTARTED, TOLERATING WELL. VERONICA CATH IN PLACE, DRAINING CLOUDY URINE. BED BATH GIVEN, WOUND CARE RENDERED, BED IN LOW POSITION, SIDE RAILS UP, CALL LIGHT WITHIN REACH. WILL CONTINUE CARE.
--- NOTE | 2019-07-06 19:24 | NUR ---
RT PT RECEIVED ON CURRENT VENT SETTINGS. PT HAS TRACH, BOVINA PORTEX 9. PT IN NO CURRENT RESPIRATORY DISTRESS. HOB AT 30 DEGREES. VENT PLUGGED INTO RED OUTLET. AMBU BAG AT HEAD OF BED. SMALL BLOODY SPUTUM SUCTIONED DUE TO NEWLY INSERTED TRACH PROCEDURE PERFORMED TODAY. WILL CONTINUE TO MONITOR. Addendum: 07/06/19 at 8 by KD FIGUEROA RT Amended: Links added.
--- NOTE | 2019-07-06 19:30 | NUR ---
RN NOTES PATIENT AWAKE EYES OPEN NOT TRACKING. WITH NEW TRACH BIVONA #9 CONNECTED TO VENT SETTING AC 18 TV 400 FIO2 40% NO PEEP TOLERATED WELL SATURATION 100%. SUCTIONED WITH FRESH BLOOD, BILATERAL BREATH SOUND RHONCHI. CORE TEMP. 99.2 DEGREE FHARENHEIGHT. SR W/INVERTED T-WAVE AND FIRST DEGREE BLOCK W/ BBB ON TELE MONITOR. NO FACIAL COMPLAIN OF PAIN. WITH GTF JEVITY1.2 INTACT, PATENCY CHECKED. IV SITE ON SAMMY MIDLINE AND RIGHT FEMORAL TLC A- LINE CALIBRATED AND ZEROED. TURNED AND REPOSITIONED FOR SKIN CARE. OFFLOADED EXT WITH PILLOWS. KEPT PT CLEAN AND DRY WILL CONTINUE TO MONITOR.
[2019-07-06] MEDS: DOCUSATE SODIUM LIQ 100 MG/10 ML UDC GT SCH (22:04)
[2019-07-07] VITALS (27 sets, daily range): BP systolic 95–142; BP diastolic 49–90
--- NOTE | 2019-07-07 02:00 | NUR ---
RN NOTES BED BATH DONE AND ORAL CARE PROVIDED. WITH SMALL BMX1 PATIENT REMAINED STABLE WILL CONTINUE TO MONITOR.
[2019-07-07 04:29] LABS: BASOPHILS % (AUTO) 0.3 % (0.0-2.0); HEMATOCRIT 25 % (33-45); HEMOGLOBIN 7.7 g/dL (11.5-14.8); LYMPHOCYTES # (AUTO) 1.2 /CMM (0.8-4.8); LYMPHOCYTES % (AUTO) 12.4 % (20.0-44.0); MEAN CORPUSCULAR HGB CONC 31 g/dl (31.0-36.0); MEAN CORPUSCULAR VOLUME 91 fL (82-100); MONOCYTES # (AUTO) 0.9 /CMM (0.1-1.30); MONOCYTES % (AUTO) 9.8 % (2.0-12.0); NEUTROPHILS # (AUTO) 7.1 /CMM (1.8-8.9); NEUTROPHILS % (AUTO) 76.5 % (43.0-81.0); PLATELET COUNT (AUTO) 152 /CMM (150-450); RED BLOOD CELL COUNT(AUTO) 2.75 MIL/uL (4.0-5.2); WHITE BLOOD COUNT (AUTO) 9.3 K/uL (4.3-11.0)
[2019-07-07 04:44] LABS: CALCIUM, SERUM 9.4 mg/dL (8.5-10.1); CARBON DIOXIDE 30 mmol/L (21-32); CHLORIDE 103 mmol/L (98-107); CREATININE 2.2 mg/dL (0.6-1.3); GLUCOSE 153 mg/dL (74-106); MAGNESIUM 2.3 mg/dL (1.8-2.4); PHOSPHORUS 6.1 mg/dL (2.5-4.9); POTASSIUM 4.6 mmol/L (3.5-5.1); SODIUM SERUM 142 mmol/L (136-145)
[2019-07-07 04:46] LABS: UREA NITROGEN, BLOOD 98 mg/dL (7-18)
[2019-07-07] MEDS: MEROPENEM 1 G in IV NS 0.9% 100 ML IV SCH (05:25)
[2019-07-07] MEDS: LORAZEPAM INJ 2 MG/ML VIAL IV PRN (05:57)
--- NOTE | 2019-07-07 06:30 | NUR ---
RN NOTES PATIENT ASLEEP AT THIS TIME CALM, NO SOB OR DISTRESS. CONTINUE WITH TRACH AND VENT SETTING ORDERED. ALL DUE MEDICINE GIVEN ORDERED. ATIVAN ADMINISTERED DUE TO PATIENT TACHYPNEIC /ANXIOUS, AND VENT KEPT ALARMING TRACH REMAINED INTACT NO LEAK AFTER 15 MINUTES PATIENT CALMED DOWN.SATURATION REMAINED 100%. AFEBRILE. VSS. INCONTINENT CARE RENDERED AND TOLERATED WELL. TURNED AND REPOSITIONED Q2H AND PRN, SUCTION ORAL AND TRACHEAL. GTF TOLERATED WELL. VERONICA CATH DRAINED VIA GRAVITY. NO SIGNIFICANT CHANGES THROUGHOUT THE SHIFT. WILL ENDORSED CONTINUITY OF CARE TO AM NURSE.
--- NOTE | 2019-07-07 08:19 | NUR ---
received pt from shoe planner, obtunded, SR, on vent, lungs congested, anasarca, GT to feeding tolerates well, f/c OK output, A line intact, v/s stable, no pain, pt turned and repositioned.
[2019-07-07] MEDS: ASPIRIN 81 MG TAB.CHEW GT SCH (08:39)
[2019-07-07] MEDS: LACTOBACILLUS RHAMNOSUS GG 1 EACH CAP.SPRINK PO SCH ×2 (08:39→17:09)
[2019-07-07] MEDS: FERROUS SULFATE UDC 300 MG/5 ML UDC GT SCH (08:40)
[2019-07-07] MEDS: FAMOTIDINE (20 MG) 20 MG TABLET GT SCH (08:40)
[2019-07-07] MEDS: CARVEDILOL 3.125 MG TABLET GT SCH ×2 (08:40→17:10)
[2019-07-07] MEDS: ENOXAPARIN SODIUM 30 MG/0.3 ML DISP.SYRIN SQ SCH (08:41)
[2019-07-07] MEDS: PROSOURCE / PROSTAT (PYXIS) 30 ML UDC GT SCH ×2 (08:44→17:10)
--- NOTE | 2019-07-07 12:39 | NUR ---
pt has been having difficulty breathing/tachypneic, with newly inserted trach, RT called, MD aware.
--- NOTE | 2019-07-07 18:22 | NUR ---
RN NOTE 1400: Received report from Leandro CARO for CODY. Patient with tarche Bivona 9, to vent, tolerated settings, noted with RR 28-33. GT intact, feeding tolerated, kept HOB elevated. Kept clean, warm and dry. Needs attended. Right femoral TLC 1630: Changed patient noted, with soft brown stool. noted with rectal/perineal wound due to MASD/loose stool, with bleeding, applied Mepilex and Zguard. 1820: No any significant changes. Kept clean, warm and dry. Needs attended. VSS.
[2019-07-07] MEDS: JEVITY 1.2 CAL 1,000 ML BOTTLE GT SCH (18:42)
--- NOTE | 2019-07-07 19:36 | NUR ---
IC RN NOTE PATIENT RECEIVED IN BED OBTUNDED AND CONTRACTED. PATIENT ON VENT TOLERATING VENT SETTINGS WELL. NO S.S OF DISTRESS. PATIENT BREATHING EVEN/ UNLABORED. PATIENT CURRENTLY SR ON THE MONITOR HR 61. PATIENT SATURATION 100%. PATIENT HAS RIGHT FEM A LINE, INTACT WITH PRESSURE BAG INFLATED. PATIENT HAS GTUBE FEEDING RUNNING AT 50 ML AND HOUR MINIMAL RESIDUAL NEEDED. PATIENT TURNED AND REPOSITIONED FOR COMFORT. ORAL CARE GIVE. RN WILL CONTINUE TO MONITOR FOR CHANGES. SAFETY PRECAUTIONS IN PLACE.
--- NOTE | 2019-07-07 20:34 | NUR ---
HOT AIR FURNACE INSTALLER REPAIRER NOTE PATIENT SLIGHTLY HYPOTHERMIC HEATING MEASURES IMPLEMENTED. Addendum: 07/07/19 at 2033 by CURRY CERVANTES RN Amended: Links added.
[2019-07-07] MEDS: DOCUSATE SODIUM LIQ 100 MG/10 ML UDC GT SCH (21:22)
[2019-07-08] VITALS (37 sets, daily range): BP systolic 93–144; BP diastolic 37–84
--- NOTE | 2019-07-08 04:07 | NUR ---
RT NOTE Pt rec'd trached on [facility] vent on AC mode. No resp distress or sob noted. Trach is patent and secured. Sx'd for mod amt of green/yellow sputum. Alarms are set and audible. Vent plugged into red outlet. Ambu bag bedside. Will continue to monitor. Addendum: 07/08/19 at 0407 by SHAYNA CHEUNG RT Amended: Links added.
--- NOTE | 2019-07-08 06:38 | NUR ---
LABELING STRATEGIST NOTE CRYPTOGRAPHY TEACHER ARVIND NOTIFIED OF PATIENT DECREASE IN URINE PRODUCTION. PATIENT ONLY PRODUCES 250 IN 12 HOURS, 20.8 ML AN HOUR. CRYPTOGRAPHY TEACHER ORDERED BMP, CBC, MG, AND PHOS.
--- NOTE | 2019-07-08 07:50 | NUR ---
SUPERVISOR SPECIAL EFFECTS: pt.is obtunded, eyes are open, no eyes contact, weak activity, unable to follow commands, rest, no grimacing, no laboring with SOB, O2sat. over 95%, RR 23-40, suctioned by RT, TT dressing is D/I, sutures are intact, SR, SBP over 100 below on Tania, 0-ed, A-line is patent/no leak, secured R.femoral TLC, A-line dressing with add tegaderm, GTF residual WNL, urine output is low/will s/w MD, anasarca, BUN/creat 100/2.0, H/H 7.6/24, plan: wants to speak with family, messages were sent/nobody called back
[2019-07-08 07:59] LABS: BASOPHILS # (AUTO) 0.1 /CMM (0.0-0.2); BASOPHILS % (AUTO) 1.1 % (0.0-2.0); EOSINOPHILS % (AUTO) 5.8 % (0.0-6.0); HEMATOCRIT 24 % (33-45); HEMOGLOBIN 7.6 g/dL (11.5-14.8); LYMPHOCYTES % (AUTO) 13.5 % (20.0-44.0); MEAN CORPUSCULAR HGB CONC 32 g/dl (31.0-36.0); MEAN CORPUSCULAR VOLUME 91 fL (82-100); MONOCYTES # (AUTO) 0.7 /CMM (0.1-1.30); MONOCYTES % (AUTO) 9.5 % (2.0-12.0); NEUTROPHILS # (AUTO) 5.5 /CMM (1.8-8.9); NEUTROPHILS % (AUTO) 70.1 % (43.0-81.0); PLATELET COUNT (AUTO) 106 /CMM (150-450); RED BLOOD CELL COUNT(AUTO) 2.62 MIL/uL (4.0-5.2); WHITE BLOOD COUNT (AUTO) 7.8 K/uL (4.3-11.0)
--- NOTE | 2019-07-08 08:00 | NUR ---
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
[2019-07-08 08:24] LABS: ALANINE AMINOTRANSFERASE 18 U/L (12-78); ALBUMIN 2.4 g/dL (3.4-5.0); ALKALINE PHOSPHATASE 68 U/L (46-116); ASPARTATE AMINOTRANSFERASE 35 U/L (15-37); BILIRUBIN,TOTAL 0.6 mg/dL (0.2-1.0); CALCIUM, SERUM 9.4 mg/dL (8.5-10.1); CARBON DIOXIDE 34 mmol/L (21-32); CHLORIDE 105 mmol/L (98-107); GLUCOSE 131 mg/dL (74-106); MAGNESIUM 2.3 mg/dL (1.8-2.4); PHOSPHORUS 5.8 mg/dL (2.5-4.9); POTASSIUM 4.5 mmol/L (3.5-5.1); SODIUM SERUM 144 mmol/L (136-145); TOTAL PROTEIN, SERUM 6.5 g/dL (6.4-8.2)
[2019-07-08 08:27] LABS: UREA NITROGEN, BLOOD 100 mg/dL (7-18)
[2019-07-08] MEDS: ENOXAPARIN SODIUM 30 MG/0.3 ML DISP.SYRIN SQ SCH (08:56)
[2019-07-08] MEDS: FAMOTIDINE (20 MG) 20 MG TABLET GT SCH (08:56)
[2019-07-08] MEDS: ASPIRIN 81 MG TAB.CHEW GT SCH (08:57)
[2019-07-08] MEDS: LACTOBACILLUS RHAMNOSUS GG 1 EACH CAP.SPRINK PO SCH ×2 (08:57→16:33)
[2019-07-08] MEDS: CARVEDILOL 3.125 MG TABLET GT SCH ×2 (08:57→16:34)
[2019-07-08] MEDS: PROSOURCE / PROSTAT (PYXIS) 30 ML UDC GT SCH ×2 (08:58→16:33)
[2019-07-08] MEDS: FERROUS SULFATE UDC 300 MG/5 ML UDC GT SCH (08:58)
[2019-07-08 09:39] LABS: ABG BASE EXCESS 4.7 mmol/L; ABG OXYGEN SATURATION 98.4 % (92.0-98.5); ABG PCO2 44.5 mmHg (35.0-45.0); ABG PH 7.437 (7.350-7.450); ABG PO2 144.5 mmHg (75.0-100.0); AaDO2 89.5 mmHg; COHb 0.6 % (0.5-1.5); MetHb 0.5 % (0.0-1.5); O2Hb 97.3 % (94.0-97.0); PEEP,BG 0 cm H2O; SITE, ABG LEFT ARM; VT, ABG 400 mL
--- NOTE | 2019-07-08 10:15 | NUR ---
ICU: Kaylen MartellBUSINESS PROJECT ANALYST is in room, updated with pt current, neurostatus, VS, GTF, I/O, low urine output, labs, ABG, spoke with , see new orders
--- NOTE | 2019-07-08 11:00 | NUR ---
COOK TACO: , RT are in room, evaluated CXR, ABG, updated with pt.current condition, VS, neurostatus, GTF, I/O, RT tried to advance into TT but unable by resistance, still 9 cm into level, is consider re flopping trachea posterior wall/tracheomalacia, waiting to speak with pt.family, ordered: start Diprivan gtt
[2019-07-08] MEDS: PROPOFOL 100 ML IV PRN ×2 (13:33→23:45)
--- NOTE | 2019-07-08 17:20 | NUR ---
PROTEIN SCIENTIST: pt is sedated well with 10 mcg/kg/m Diprivan, reactive by touch, rest, RR 25-32 now, SR, SBP 105-120, O2sat. over 96%, pt is suctioned well, GTF residual WNL, A-line is intact/patent, all wounds,PM,skin care is done, low urine output/will notify new nurse, no any call from family per shift
--- NOTE | 2019-07-08 17:37 | NUR ---
PRIVACY ATTORNEY: pt is suctioned orally with large amount of thick saliva, grimacing, coughing, increased sedation
--- NOTE | 2019-07-08 19:30 | NUR ---
CAN STERILIZER RCD PT W/DX NSTEMI, SEPSIS S/P TRACH REPLACEMENT ON 07/06. PT IS SEDATED ON PROPOFOL @ 15 MCG/KG/MIN. BIVONA 9 W/VENT SETTINGS AC 18 400 40% +0; PT HAS MODERATE AMOUNT OF THICK SECRETIONS. RENDERED ORAL CARE. NSR ON MONITOR. GENERALIZED EDEMA NOTED. R FEM TLC PATENT AND FLUSHING WELL; A LINE IN PLACE. LINES SECURED. PENDING FAMILY CALL BACK TO ARRANGE MEETING W/DR CANELA TO DISCUSS FURTHER TREATMENT. CONTINUE TO MONITOR.
--- NOTE | 2019-07-08 19:56 | NUR ---
RT Pt received Trached on [facility] vent with noted setting. Pt tolerating setting well. Trach patent and secure. No sob or distress noted. Alarms set and audible.Will continue to monitor. Addendum: 07/08/19 at 1959 by ABDIRIZAK LEVY RT Amended: Links added.
[2019-07-08] MEDS: DOCUSATE SODIUM LIQ 100 MG/10 ML UDC GT SCH (21:08)
[2019-07-08] MEDS: JEVITY 1.2 CAL 1,000 ML BOTTLE GT SCH (23:45)
[2019-07-09] VITALS (19 sets, daily range): BP systolic 0–123; BP diastolic 0–61
--- NOTE | 2019-07-09 08:24 | NUR ---
RT NOTE PT RECEIVED ON THE FOLLOWING NOTED SETTINGS. PT SUCTIONED: SMALL THIN CLEAR SECRETIONS NOTED. PT IS TRACHED. A-LINE BLOOD WILL BE DRAWN BY VANIA SELF FOR ABG PER DR. CANELA. VENT IS PLUGGED INTO RED OUTLET. ALARMS ARE ON AND AUDIBLE. AMBU BAG AND SPARE TRACH ARE AT BEDSIDE. WILL CONT TO MONITOR PT WITH RN. Addendum: 07/09/19 at 0827 by VICENTE MONTEJO RT Amended: Links added.
[2019-07-09] MEDS: CARVEDILOL 3.125 MG TABLET GT SCH ×2 (08:30→08:36)
[2019-07-09] MEDS: ASPIRIN 81 MG TAB.CHEW GT SCH (08:32)
[2019-07-09] MEDS: LACTOBACILLUS RHAMNOSUS GG 1 EACH CAP.SPRINK PO SCH (08:32)
[2019-07-09] MEDS: FERROUS SULFATE UDC 300 MG/5 ML UDC GT SCH (08:32)
--- NOTE | 2019-07-09 08:39 | NUR ---
COREG P.O. NOT ADMINISTERED. BP 98/45 MMHG; HR 52
[2019-07-09] MEDS: FAMOTIDINE (20 MG) 20 MG TABLET GT SCH (08:41)
[2019-07-09 09:08] LABS: ABG BASE EXCESS 5.2 mmol/L; ABG OXYGEN SATURATION 98.8 % (92.0-98.5); ABG PCO2 39.9 mmHg (35.0-45.0); ABG PH 7.481 (7.350-7.450); ABG PO2 173.3 mmHg (75.0-100.0); COHb 0.5 % (0.5-1.5); MetHb 0.8 % (0.0-1.5); O2Hb 97.5 % (94.0-97.0); PEEP,BG 0 cm H2O; SITE, ABG A-Line; VENT MODE, BG AC 40%; VT, ABG 400 mL
[2019-07-09] MEDS: ENOXAPARIN SODIUM 30 MG/0.3 ML DISP.SYRIN SQ SCH (10:53)
[2019-07-09] MEDS: PROSOURCE / PROSTAT (PYXIS) 30 ML UDC GT SCH (10:56)
--- NOTE | 2019-07-09 10:56 | NUR ---
Lovenox SQ given after BIN OPERATOR Jasbir decided with PLT of 106. Patient has no signs of any bleeding from trach tube site nor Rt femerol TLC.
--- NOTE | 2019-07-09 11:00 | NUR ---
Patient code status change to DNR after DELIVERY COORDINATOR Jasbir called and explained to patient's family the patient's poor outcome. Patient's family decided DNR.
[2019-07-09] MEDS: PROPOFOL 100 ML IV PRN (11:58)
--- NOTE | 2019-07-09 13:00 | NUR ---
Patient's HR started not to corn picker. Agonal rhythm on the monitor with no rate showing and with very weak pulse. Patient's DNR/DNI (patient with trach tube connected to vent, on AC mode). RR 53, 02 sat 95.
--- NOTE | 2019-07-09 13:15 | NUR ---
Still on agonal rhythm. HR not showing. Weak thready pulse. RR 46. On Ac mode per vent setting. O2 sat 28%. Patient DNR/DNI. Will keep monitoring. Charge nurse is aware.
--- NOTE | 2019-07-09 13:30 | NUR ---
Asystole on the monitor. Pulse and BP not appreciated. Pupils none reactive. No corneal reflexes. No gag reflex on suctioning. Pronounced by charge nurse Kayli Roach RN. [employer] (see documentation for case number) and family called and informed patient's .
--- NOTE | 2019-07-09 16:53 | NUR ---
RT NOTE PT FOUND STILL CONNECTED TO THE VENTILATOR ON AC 18, 400, 40, +0 AT 1345 DURING REGULAR VENT CHECK ROUNDS. MONITOR SHOWING ASYSTOLE, NO PULSE. ROCK LOADER IS AWARE. VENT TURNED OFF AND TAKEN OUT THE ROOM TO BE CLEANED.
== END 2019-07-09 13:30 | disposition expired | DRG 166 ==
LOC: ER 20:47 → TELE 23:28 → ICU 06-30 14:36
PROVIDERS: ADMIT Student in an Organized Health Care Education/Training Program; ATTEND Student in an Organized Health Care Education/Training Program
PROC: 5A1955Z Respiratory Ventilation, Greater than 96 Consecutive Hours (ICD-10-PCS; principal; 2019-06-24)
PROC: 04HK33Z Insertion of Infusion Device into Right Femoral Artery, Percutaneous Approach (ICD-10-PCS; 2019-06-30)
PROC: 06HM33Z Insertion of Infusion Device into Right Femoral Vein, Percutaneous Approach (ICD-10-PCS; 2019-06-30)
PROC: B54BZZA Ultrasonography of Right Lower Extremity Veins, Guidance (ICD-10-PCS; 2019-06-30)
PROC: 0BW17FZ Revision of Tracheostomy Device in Trachea, Via Natural or Artificial Opening (ICD-10-PCS; 2019-07-06)
PROC: 0CQ7XZZ Repair Tongue, External Approach (ICD-10-PCS; 2019-07-06)
DX: J15.6 Pneumonia due to other Gram-negative bacteria (principal); N17.0 Acute kidney failure with tubular necrosis; R53.2 Functional quadriplegia; I21.A1 Myocardial infarction type 2; J96.10 Chronic respiratory failure, unspecified whether with hypoxia or hypercapnia; E44.0 Moderate protein-calorie malnutrition; E87.1 Hypo-osmolality and hyponatremia; D68.59 Other primary thrombophilia; I50.22 Chronic systolic (congestive) heart failure; G93.49 Other encephalopathy; I42.9 Cardiomyopathy, unspecified; J93.82 Other air leak; J98.11 Atelectasis; N39.0 Urinary tract infection, site not specified; Z99.11 Dependence on respirator [ventilator] status; I25.10 Atherosclerotic heart disease of native coronary artery without angina pectoris; E86.0 Dehydration; D69.6 Thrombocytopenia, unspecified; Z74.09 Other reduced mobility; E83.51 Hypocalcemia; D64.9 Anemia, unspecified; E86.1 Hypovolemia; E87.5 Hyperkalemia; I11.0 Hypertensive heart disease with heart failure; I25.2 Old myocardial infarction; I46.9 Cardiac arrest, cause unspecified; R13.10 Dysphagia, unspecified; S01.512A Laceration without foreign body of oral cavity, initial encounter; X58.XXXA Exposure to other specified factors, initial encounter; Y92.9 Unspecified place or not applicable; Z79.82 Long term (current) use of aspirin; Y95 Nosocomial condition; Z79.899 Other long term (current) drug therapy; E66.01 Morbid (severe) obesity due to excess calories; Z68.39 Body mass index [BMI] 39.0-39.9, adult; B96.89 Other specified bacterial agents as the cause of diseases classified elsewhere
CPT/HCPCS: 31720; 36415; 36600; 71045-TC; 73030-TC; 76770-TC; 80048-TC; 80053-TC; 80061-TC; 80076-TC; 80162-TC; 80202-TC; 81000-TC; 82570-TC; 82803-TC; 82962-TC; 83605-TC; 83735-TC; 84100-TC; 84155-TC; 84300-TC; 84443-TC; 84484-TC; 85025-TC; 85730-TC; 86850-TC; 87040-TC; 87070-TC; 87081-TC; 87086-TC; 87186-TC; 92950-TC; 93307-TC; 94003-TC; 94760-TC; 94762-TC; 99082-TC; A4216; A4623; A6403; A7526; C1751; G0378; J0171; J0330; J1650; J1940; J2060; J2185; J2370; J2405; J2543; J3370; J3490; J7030; J7040; J7050; J7060; P9047